=== PATIENT | female | born 1945 | race Caucasian/White ===

== ENCOUNTER 2016-03-03 23:03 | Inpatient (IN) | payer MEDICARE, OTHER ==
--- NOTE | 2016-03-04 | ER Document Report ---
ED General - General Chief Complaint: Hip Injury Stated Complaint: WEAKNESS Notes: Patient is a 70-year-old female presents for complaint of pain in the left hip. Patient was seen at [facility]. She had an x-ray which showed a hip fracture. They spoke with Dr. Manzano, orthopedist, who accepts the patient to be transferred to the ER. Patient says that she's walking her back yard and tripped. She says it was mechanical fall. She was not dizzy or lightheaded prior to falling. She landed onto her left hip. She only has pain in her left hip. No pain into her knee or foot. No numbness or weakness into her knee or foot. X-ray of the hip was obtained which shows a left intertrochanteric fracture. CT scan of the neck was obtained there because of a fall. Patient says she never had any neck pain but they did obtain a CT scan which was negative. CBC and CMP were obtained and showed no acute concerning abnormalities. Patient is on simvastatin. She takes Micardis and Toprol for high blood pressure. She takes Celexa. She has no other chronic medical problems. She is otherwise healthy. Her primary care doctor is Dr. White. TRAVEL OUTSIDE OF THE [place] IN LAST 30 DAYS: No - Related Data Allergies/Adverse Reactions: ampicillin [Ampicillin] Allergy (Severe, Verified 12/04/11 14:50) Rash Past Medical History - Social History Smoking Status: Never Smoker Frequency of alcohol use: None Drug Abuse: None Family History: Reviewed & Not Pertinent - Past Medical History Cardiac Medical History: Reports: Hx Hypercholesterolemia - well controlled with current meds, Hx Hypertension - well controlled with current meds Denies: Hx Atrial Fibrillation, Hx Congestive Heart Failure, Hx Coronary Artery Disease, Hx Heart Attack, Hx Peripheral Vascular Disease, Hx Pulmonary Embolism, Hx Heart Murmur Pulmonary Medical History: Reports: Hx Bronchitis, Hx Pneumonia Denies: Hx Asthma, Hx COPD, Hx Respiratory Failure, Hx Sleep Apnea, Hx Tuberculosis Neurological Medical History: Denies: Hx Seizures Renal/ Medical History: Reports: Hx Ovarian Cysts. Denies: Hx End Stage Renal Disease, Hx Kidney Stones, Hx Peritoneal Dialysis, Hx Pelvic Inflammatory Disease Malignancy Medical History: Denies: Hx Breast Cancer, Hx Cervical Cancer, Hx Leukemia, Hx Lung Cancer, Hx Ovarian Cancer Musculoskeltal Medical History: Reports Hx Arthritis, Denies Hx Fibromyalgia, Denies Hx Muscular Dystrophy Traumatic Medical History: Reports: Hx Fractures - LEFT humerus as child, RIGHT long finger fx r/t dog bite Infectious Medical History: Denies: Hx HIV Past Surgical History: Reports: Hx Orthopedic Surgery - orthrothoscopy left knee ;, Hx Vascular Surgery - l carotid endarterectomy. Denies: Hx Appendectomy, Hx Bowel Surgery, Hx Section, Hx Cholecystectomy, Hx Coronary Artery Bypass Graft, Hx Gastric Bypass Surgery, Hx Herniorrhaphy, Hx Hysterectomy, Hx Mastectomy, Hx Pacemaker, Hx Tonsillectomy, Hx Tubal Ligation - Immunizations Hx Diphtheria, Pertussis, Tetanus Vaccination: Yes - t-dap given during secondary Hx Pneumococcal Vaccination: 12/10/11 Review of Systems - Review of Systems Notes: My Normal Review Basic REVIEW OF SYSTEMS: CONSTITUTIONAL : Denies fever, chills, or sweats. Denies recent illness. EENT: Denies eye, ear, throat, or mouth pain or symptoms. Denies nasal or sinus congestion. CARDIOVASCULAR: Denies chest pain. RESPIRATORY: Denies cough, cold, or chest congestion. Denies shortness of breath, difficulty breathing, or wheezing. GASTROINTESTINAL: Denies abdominal pain. Denies nausea, vomiting, or diarrhea. Denies constipation. Last BM: : MUSCULOSKELETAL: Left hip pain. SKIN: Denies rash or skin lesions. HEMATOLOGIC : Denies easy bruising or bleeding. LYMPHATIC: Denies swollen, enlarged glands. NEUROLOGICAL: Denies altered mental status or loss of consciousness. Denies headache. Denies weakness or paralysis or loss of use of either side. Denies problems with gait or speech. Denies sensory or motor loss. ALL OTHER SYSTEMS REVIEWED AND NEGATIVE. Physical Exam - Vital signs Vitals: Resp 18 03/03/16 23:15 - Notes Notes: General Appearance: Well nourished, alert, cooperative, no acute distress, mild obvious discomfort. Well-appearing. Vitals: reviewed, See vital signs table. Head: no swelling or tenderness to the head Eyes: PERRL, EOMI, Conjuctiva clear Mouth: No decreasd moisturey Neck: Supple, no neck tenderness, No thyromegaly Lungs: No wheezing, No rales, No rhonci, No accessory muscle use, good air exchange bilaterally. Heart: Normal rate, Regular rythm, No murmur, no rub Abdomen: Normal BS, soft, No rigidity, No abdominal tenderness, No guarding, no rebound, no abdominal masses, no organomegaly Extremities: strength 5/5 in all extremities, good pulses in all extremities, pain to palpation of left hip. Remainder of left lower extremity is nontender. Other 3 extremities are nontender without any bruising or deformity. Skin: warm, dry, appropriate color, no rash Neuro: speech clear, oriented x 3, normal affect, responds appropriately to questions. Distal sensation intact in all 4 strands. Patient has good strength with plantar and dorsiflexion of the left foot. Good capillary refill. Course - Vital Signs Vital signs: Temp Pulse Resp BP Pulse Ox 99.4 F 71 20 144/52 H 96 03/04/16 03:11 03/04/16 03:11 03/04/16 03:11 03/04/16 03:11 03/04/16 03:11 - Laboratory Result Diagrams: 03/04/16 00:30 03/04/16 00:30 - EKG Interpretation by Me Additional EKG results interpreted by me: 03/04/16 04:57 EKG shows normal sinus rhythm with rate of [address] segment elevation or depression. No ischemic T wave inversions. MI interval, QRS duration, QTC intervals are within normal range. No old EKG available for comparison. - Transfer of Care Notes: 03/04/16 00:03 I called spoke with hospice, Dr. Summers, who sent feel that the patient is to be medically admitted but the swelling consult medical management. I called Dr. Manzano, orthopedic surgeon who accepted the patient, who requested that Dr. Summers call him on his cell phone. I did hear back from Dr. Summers and reviewed the patient's for medications with him. I did review the laboratory results from the outside facility. He said he would call back Dr. Manzano to discuss it further. 03/04/16 00:10 Dr. Dubon called me back again. He said that after discussion with Dr. Manzano , Dr. Manzano has agreed to accept the patient for admission. Discharge - Discharge Clinical Impression: Hip fracture, left Qualifiers: Encounter type: initial encounter Fracture type: closed Qualified Code(s): S72.002A - Fracture of unspecified part of neck of left femur, initial encounter for closed fracture Condition: Stable Disposition: ADMITTED INPATIENT Admitting Provider: Jose Juan
[2016-03-04] MEDS ORDERED: ONDANSETRON HCL INJ/PF 4 MG/2 ML SDV IV PRN (00:09)
[2016-03-04] MEDS ORDERED: RINGERS SOLUTION,LACTATED 1,000 ML IV PRN ×2 (00:09→17:52)
[2016-03-04] MEDS ORDERED: MORPHINE SULFATE 10 MG/ML INJ IV PRN (00:13)
[2016-03-04 00:46] LABS: ABSOLUTE LYMPHOCYTES (AUTO) 0.8 10^3/uL (0.5-4.7); ABSOLUTE MONOCYTES (AUTO) 0.4 10^3/uL (0.1-1.4); ABSOLUTE NEUT (AUTO) 5.1 10^3/uL (1.7-8.2); BASOPHILS % (AUTO) 0.6 % (0-2); EOSINOPHILS % (AUTO) 0.1 % (0-6); HEMATOCRIT 31.6 % (36.0-47.0); HEMOGLOBIN 11.1 g/dL (12.0-15.5); HGB HCT DIFFERENCE 1.7; LYMPHOCYTES % (AUTO) 12.1 % (13-45); MEAN CORPUSCULAR HEMOGLOBIN 31.9 pg (27.0-33.4); MEAN CORPUSCULAR VOLUME 91 fl (80-97); MONOCYTES % (AUTO) 6.3 % (3-13); RED BLOOD COUNT 3.47 10^6/uL (3.72-5.28); RED CELL DISTRIBUTION WIDTH 12.9 % (11.5-14.0); SEGMENTED NEUTROPHILS % (AUTO) 80.9 % (42-78); WHITE BLOOD COUNT 6.3 10^3/uL (4.0-10.5)
[2016-03-04 01:00] LABS: ANION GAP 11 (5-19); BLOOD UREA NITROGEN 30 mg/dL (7-20); CALCIUM 9.5 mg/dL (8.4-10.2); CARBON DIOXIDE 25 mmol/L (22-30); CHLORIDE 105 mmol/L (98-107); GLUCOSE 118 mg/dL (75-110); POTASSIUM 4.8 mmol/L (3.6-5.0); SODIUM 140.8 mmol/L (137-145)
[2016-03-04] MEDS: OXYCODONE-ACETAMINOPHEN 5-325 MG TABLET PO PRN ×3 (01:16→20:49)
--- NOTE | 2016-03-04 07:20 | EKG REPORT ---
SEVERITY:- NORMAL ECG - SINUS RHYTHM : Confirmed by: Lou Cr MD 04-Mar-2016 07:19:42
[2016-03-04] MEDS ORDERED: GLYCOPYRROLATE INJ 0.4 MG/2 ML VIAL ONE (07:39)
[2016-03-04] MEDS ORDERED: ONDANSETRON HCL INJ/PF 4 MG/2 ML SDV ONE (07:39)
[2016-03-04] MEDS ORDERED: LIDOCAINE 2% INJ-PF (20 MG/ML) 10 ML AMPUL ONE (07:39)
--- NOTE | 2016-03-04 07:59 | PDOC H&P ---
History of Present Illness Admission Date/PCP: 03/04/16 00:09 HEMALATHA ZAPATA Patient complains of: Left Hip Pain History of Present Illness: LISA RAY is a 70 year old female who sustained a fall onto her left hip on 03/03/16. Patient denies headache dizziness or loss of consciousness. Patient had deformity and pain and was brought to [facility] emergency room where x-rays demonstrated a fracture. Patient received a CT scan of the C-spine which was negative for fracture. Because of no orthopedic coverage patient was transferred to [facility] for definitive treatment. Currently patient states pain is 10/10 without Percocet with motion. Denies numbness or tingling. Describes as sharp stabbing pain. Past Medical History Cardiac Medical History: Reports: Hyperlipidema - well controlled with current meds, Hypertension - well controlled with current meds Denies: Atrial Fibrillation, Congestive Heart Failure, Coronary Artery Disease, Myocardial Infarction, Peripheral Vascular Disease, Pulmonary Embolism , Heart Murmur Pulmonary Medical History: Reports: Bronchitis, Pneumonia Denies: Asthma, Chronic Obstructive Pulmonary Disease (COPD), Respiratory Failure, Sleep Apnea, Tuberculosis Neurological Medical History: Denies: Seizures Renal/ Medical History: Denies: End Stage Renal Disease Malignancy Medical History: Denies: Breast Cancer, Cervical Cancer, Leukemia, Lung Cancer, Ovarian Cancer Musculoskeltal Medical History: Reports: Arthritis Denies: Fibromyalgia Psychiatric Medical History: Reports: Depression - yeyears ago when menapause started Hematology: Reports: Anemia - "borderline" Denies: Hemophilia, Sickle Cell Disease Infectious Medical History: Denies: HIV Past Surgical History Past Surgical History: Reports: Orthopedic Surgery - Bilateral TKA, Vascular Surgery - l carotid endarterectomy Denies: Amputation, Appendectomy, Section, Cholecystectomy, Coronary Artery Bypass Graft, Gastric Bypass Surgery, Herniorrhaphy, Hysterectomy, Mastectomy, Pacemaker, Tonsillectomy, Tubal Ligation Social History Smoking Status: Never Smoker Frequency of Alcohol Use: None Hx Recreational Drug Use: No Hx Prescription Drug Abuse: No - Advance Directive Resuscitation Status: Full Code Family History Family History: Reviewed & Not Pertinent Parental Family History Reviewed: No Children Family History Reviewed: No Sibling(s) Family History Reviewed.: Yes - Sister: Cardiac Medication/Allergy Home Medications: Citalopram Hydrobromide [Celexa 20 Mg Tablet] 20 mg PO QAM 07/23/12 Metoprolol Succinate [Toprol XL 25 mg Tablet] 25 mg PO QAM 09/15/11 Simvastatin [Zocor 40 mg Tablet] 40 mg PO QHS 09/15/11 Telmisartan [Micardis 80 mg Tablet] 80 mg PO QAM 12/04/11 Allergies/Adverse Reactions: ampicillin [Ampicillin] Allergy (Severe, Verified 12/04/11 14:50) Rash Review of Systems Constitutional: ABSENT: chills, fever(s), headache(s), weight gain, weight loss Eyes: ABSENT: visual disturbances Ears: ABSENT: hearing changes Cardiovascular: ABSENT: chest pain, dyspnea on exertion, edema, orthropnea, palpitations Respiratory: ABSENT: cough, hemoptysis Gastrointestinal: ABSENT: abdominal pain, constipation, diarrhea, hematemesis, hematochezia, nausea, vomiting Genitourinary: ABSENT: dysuria, hematuria Musculoskeletal: PRESENT: as per HPI Integumentary: ABSENT: rash, wounds Neurological: ABSENT: abnormal gait, abnormal speech, confusion, dizziness, focal weakness, syncope Psychiatric: ABSENT: anxiety, depression, homidical ideation, suicidal ideation Endocrine: ABSENT: cold intolerance, heat intolerance, menstrual abnormalities, polydipsia, polyuria Hematologic/Lymphatic: ABSENT: easy bleeding, easy bruising, lymphadenopathy Physical Exam Vital Signs: Temp Pulse Resp BP Pulse Ox 99.4 F 71 20 144/52 H 96 03/04/16 03:11 03/04/16 03:11 03/04/16 03:11 03/04/16 03:11 03/04/16 03:11 Intake & Output 03/03/16 03/04/16 03/05/16 06:59 06:59 06:59 Intake Total 0 Output Total 500 Balance -500 Weight 67.132 kg General appearance: PRESENT: no acute distress, well-developed, well-nourished Head exam: PRESENT: atraumatic, normocephalic Eye exam: PRESENT: conjunctiva pink, EOMI, PERRLA. ABSENT: scleral icterus Ear exam: PRESENT: normal external ear exam Mouth exam: PRESENT: moist, tongue midline Neck exam: PRESENT: full ROM. ABSENT: carotid bruit, JVD, lymphadenopathy, thyromegaly Respiratory exam: PRESENT: unlabored Cardiovascular exam: PRESENT: RRR. ABSENT: diastolic murmur, rubs, systolic murmur Pulses: PRESENT: normal dorsalis pedis pul, +2 pedal pulses bilateral Vascular exam: PRESENT: normal capillary refill GI/Abdominal exam: PRESENT: normal bowel sounds, soft. ABSENT: distended, guarding, mass, organolmegaly, rebound, tenderness Rectal exam: PRESENT: deferred Musculoskeletal exam: PRESENT: other - Left Hip: Short, externally rotated. Positive log roll. Intact plantar flexion/dorsiflexion. Dorsalis pedis pulses 2+. Thigh swollen compartments soft and compressible no sign of compartment syndrome. No tenderness/deformity bilateral upper extremities and right lower extremity. Neurological exam: PRESENT: alert, awake, oriented to person, oriented to place , oriented to time, oriented to situation, CN II-XII grossly intact. ABSENT: motor sensory deficit Psychiatric exam: PRESENT: appropriate affect, normal mood. ABSENT: homicidal ideation, suicidal ideation Skin exam: PRESENT: dry, intact, warm. ABSENT: cyanosis, rash Results Laboratory Results: 03/04/16 00:30 03/04/16 00:30 03/04/16 03/04/16 00:30 00:30 WBC 6.3 RBC 3.47 L Hgb 11.1 L Hct 31.6 L MCV 91 MCH 31.9 MCHC 35.0 RDW 12.9 Plt Count 113 L Seg Neutrophils % 80.9 H Lymphocytes % 12.1 L Monocytes % 6.3 Eosinophils % 0.1 Basophils % 0.6 Absolute Neutrophils 5.1 Absolute Lymphocytes 0.8 Absolute Monocytes 0.4 Absolute Eosinophils 0.0 Absolute Basophils 0.0 Sodium 140.8 Potassium 4.8 Chloride 105 Carbon Dioxide 25 Anion Gap 11 BUN 30 H Creatinine 1.10 Est GFR ( Amer) > 60 Est GFR (Non-Af Amer) 49 L Glucose 118 H Calcium 9.5 Impressions: Hip X-Ray 03/04/16 00:00 IMPRESSION: Intertrochanteric fracture of the left hip. Chest X-Ray 03/04/16 00:11 IMPRESSION: NO ACUTE RADIOGRAPHIC FINDING IN THE CHEST. Status: Image reviewed by me - I have reviewed patient's radiographs demonstrate comminuted intertrochanteric left hip fracture with extension to the lesser trochanter region. Assessment & Plan - Diagnosis (1) Fracture, intertrochanteric, left femur Qualifiers: Encounter type: initial encounter Fracture type: closed Qualified Code(s): S72.142A - Displaced intertrochanteric fracture of left femur , initial encounter for closed fracture Is this a current diagnosis for this admission?: YesPlan: I have discussed patient's diagnosis and treatment options for her left intertrochanteric fracture. Given patient's relative good health and a status I have recommended operative intervention which includes left cephalo-medullary nail. Risks and benefits have been explained to the patient patient is verbalizes understanding and consented for the procedure. Risks include anesthetic complications, excessive bleeding, infection, injury to surrounding nerves, vessels and tendons, bruising, healing difficulties, scar formation, posttraumatic arthritis and any unforseen complication. We will proceed with operative intervention pending medical optimization. We will start the patient on Xarelto postoperatively.
[2016-03-04] MEDS: CITALOPRAM HYDROBROMIDE 20 MG TABLET PO SCH (09:16)
[2016-03-04] MEDS: METOPROLOL SUCCINATE 25 MG TAB.SR.24H PO SCH (09:22)
[2016-03-04] MEDS: LOSARTAN POTASSIUM 50 MG TABLET PO SCH (09:22)
--- NOTE | 2016-03-04 09:36 | PDOC PROGRESS REPORT ---
Subjective Progress Note for:: 03/04/16 Subjective:: Patient seen by Dr. Summers in consultation today. Patient placed on antihypertensive medications. Patient denies any chest pain on climbing up steps or walking several blocks. She was watching her dogs when she sustained a mechanical fall causing a fracture. She does not have dyspnea on exertion nor any chest pain at all even with activity. Physical Exam Vital Signs: Temp Pulse Resp BP Pulse Ox 97.5 F 77 16 151/68 H 99 03/04/16 08:22 03/04/16 08:22 03/04/16 08:22 03/04/16 08:22 03/04/16 08:22 Intake & Output 03/03/16 03/04/16 03/05/16 06:59 06:59 06:59 Intake Total 0 Output Total 500 Balance -500 Weight 67.132 kg General appearance: PRESENT: no acute distress, cooperative Head exam: PRESENT: normocephalic Eye exam: PRESENT: conjunctiva pink, EOMI Mouth exam: PRESENT: moist, neck supple Neck exam: PRESENT: carotid bruit - Right Respiratory exam: PRESENT: clear to auscultation feliciano, unlabored. ABSENT: crackles, rhonchi, wheezes Cardiovascular exam: PRESENT: RRR, systolic murmur - The aortic area about 2/6. ABSENT: gallop GI/Abdominal exam: PRESENT: normal bowel sounds, soft. ABSENT: distended, tenderness Extremities exam: ABSENT: pedal edema Neurological exam: PRESENT: alert, awake, oriented to situation Psychiatric exam: PRESENT: normal mood Skin exam: PRESENT: dry, warm. ABSENT: cyanosis Results Laboratory Results: 03/04/16 00:30 03/04/16 00:30 03/04/16 03/04/16 00:30 00:30 WBC 6.3 RBC 3.47 L Hgb 11.1 L Hct 31.6 L MCV 91 MCH 31.9 MCHC 35.0 RDW 12.9 Plt Count 113 L Seg Neutrophils % 80.9 H Lymphocytes % 12.1 L Monocytes % 6.3 Eosinophils % 0.1 Basophils % 0.6 Absolute Neutrophils 5.1 Absolute Lymphocytes 0.8 Absolute Monocytes 0.4 Absolute Eosinophils 0.0 Absolute Basophils 0.0 Sodium 140.8 Potassium 4.8 Chloride 105 Carbon Dioxide 25 Anion Gap 11 BUN 30 H Creatinine 1.10 Est GFR ( Amer) > 60 Est GFR (Non-Af Amer) 49 L Glucose 118 H Calcium 9.5 Impressions: Hip X-Ray 03/04/16 00:00 IMPRESSION: Intertrochanteric fracture of the left hip. Chest X-Ray 03/04/16 00:11 IMPRESSION: NO ACUTE RADIOGRAPHIC FINDING IN THE CHEST. Assessment & Plan - Diagnosis (1) Hip fracture, left Qualifiers: Encounter type: initial encounter Fracture type: closed Qualified Code(s): S72.002A - Fracture of unspecified part of neck of left femur, initial encounter for closed fracture Is this a current diagnosis for this admission?: Yes (2) Hypertension Qualifiers: Hypertension type: essential hypertension Qualified Code(s): I10 - Essential (primary) hypertension (3) Hyperlipidemia Qualifiers: Hyperlipidemia type: unspecified Qualified Code(s): E78.5 - Hyperlipidemia, unspecified Is this a current diagnosis for this admission?: Yes (4) Chronic kidney disease Qualifiers: Chronic kidney disease stage: stage 2 (mild) Qualified Code(s): N18.2 - Chronic kidney disease, stage 2 (mild) Is this a current diagnosis for this admission?: Yes (5) Carotid atherosclerosis Qualifiers: Laterality: unspecified laterality Qualified Code(s): I65.29 - Occlusion and stenosis of unspecified carotid artery Is this a current diagnosis for this admission?: Yes - Time Time Spent with patient: 25-34 minutes - Plan Summary Plan Summary: Patient is a class II risk of about 0.9% cardiac event based on the revised cardiac index. She is more than average risk for surgery. Continue antihypertensive medication. Antiplatelet therapy when orthopedics clear. She denies LA, heart failure, stroke, nor diabetes. Patient stated she had chronic kidney disease but her creatinine is normal. He may have had TIA symptoms in the past and she was found to have carotid bruit requiring endarterectomy on her carotid on left.
[2016-03-04] MEDS ORDERED: CLINDAMYCIN 600 MG/D5W RTU 600 MG/50 ML RTUPB IV ONE (15:40)
[2016-03-04] MEDS ORDERED: FENTANYL CITRATE INJ/PF 100 MCG/2 ML AMPUL ONE (16:15)
[2016-03-04] MEDS ORDERED: ACETAMINOPHEN 100 ML IV ONE (16:16)
[2016-03-04] MEDS ORDERED: PROPOFOL INJ 200 MG/20 ML VIAL IV ONE (16:16)
[2016-03-04] MEDS ORDERED: MIDAZOLAM 2 MG/2 ML INJ ONE (16:16)
[2016-03-04] MEDS ORDERED: MAG HYDROX/AL HYDROX/SIMETH SUSP 30 ML UDCUP PO PRN (17:52)
--- NOTE | 2016-03-04 17:56 | Operative Report ---
Operative Report DATE OF SURGERY: 03/04/16 PREOPERATIVE DIAGNOSIS: Left Intertrochanteric Hip Fracture POSTOPERATIVE DIAGNOSIS: Same OPERATION: Left Hip Short Cephalomedullary Nail SURGEON: NATHALY ALCALA ANESTHESIA: Spinal COMPLICATIONS: None ESTIMATED BLOOD LOSS: 50 PROCEDURE: Indication for above procedure: Pleasant 70-year-old female who was outside with her dogs when she interval currently sustained a fall onto her left hip. Patient was seen outside facility where radiographs demonstrated intertrochanteric fracture. [facility] At that point I discussed treatment options including operative versus nonoperative intervention. Risk and benefits were explained to the patient, patient verbalized understanding consented for the procedure. Patient was seen and evaluated in the preoperative holding area. The LEFT lower extremity was initialized and marked. Patient received 6 mg of clindamycin IV for bacterial prophylaxis. Patient was taken back to the operative room where transferred operative table. Patient was placed under spinal anesthesia. Once adequate anesthetized he was carefully placed onto the hip positioner the nonoperative lower extremity and bilateral upper extremities were carefully padded and the peroneal nerve was padded and on the nonoperative extremity. The operative extremity was placed in a traction along with adduction and internal rotation. A surgical team debriefing was performed ensuring all instrumentation was available, the surgical procedure was discussed with possible concerns reviewed. A timeout was done identifying correct patient, procedure and extremity everyone in attendance agree with this and verbalized no concerns. Reduction maneuver with the use of the hip traction table were done and C-arm fluoroscopy was used to confirm optimal reduction of the intertrochanteric fracture. Once this was confirmed the lower extremity was prepped with chlor prep and draped in a sterile fashion. At this point a small skin incision was made proximal to the greater trochanter. The guidewire was placed onto the tip of the trochanter advanced down to the level of the lesser trochanter. AP and lateral fluoroscopy was used to confirm appropriate placement of the guidewire. The skin incision was then extended and the underlying fascia opened up carefully to the tip of the greater trochanter. The entry reamer was then used and advanced to the level of the lesser trochanter. At this point Marengo short gamma nail was opened up and placed onto the aiming arm and advanced down the shaft of the femur. AP and lateral fluoroscopy was then used to confirm appropriate placement of the nail. Then turned my attention to the compression screw fixation in the femoral head. The trochars were advanced to the skin, a skin incision was made, careful dissection down to the fascia to the lateral femoral cortex was then partaken. The guidewire was then used and placed in the center center position with the tip apex distance less than 25 mm. Once this position was obtained the size of the compression screw was measured. AP and lateral fluoroscopy used to confirm appropriate placement of our guide wire. The step reamer was used to drill up through the femoral neck and head. I then carefully advanced the compression screw into position. AP and lateral fluoroscopy was done to confirm appropriate placement of the compression screw this was then locked into position proximally. The compression screw was then disengaged from its mounting device and the guidewire was removed. Lastly proceeded with locking of the nail distally. Using the aiming arm the trochars were advanced to the skin, a skin incision was made. Careful dissection done with a hemostat to the lateral cortex of the femur. I then drilled the near and far cortices. Measured the appropriate sized distal locking screw and secured it into position. At this point AP/lateral and oblique views of the proximal and distal aspect of the nail were taken confirming appropriate placement of the compression screw, distal locking screw and intramedullary nail. Once this was confirmed I proceeded with copious irrigation of the proximal and distal wounds. The deep tissues were closed with 0 Vicryl suture, subcutaneous tissues were closed with 3-0 Monocryl suture. The skin was closed a running 3-0 subcuticular Monocryl suture and reinforced with Dermabond & Steri-Strips. A dressing was placed. Sponge counts, instrument counts and needle counts were correct. Patient was then transferred from the operating room table to the operating room stretcher. The was no intraoperative complications patient tolerated procedure well was stable to PACU. Implants used: Marengo 11 x 180 mm 130 Short Gamma Nail with a 105 mm compression screw Postoperative plan: Patient will be weightbearing as tolerated and begin physical therapy on postop day #1 with Xarelto daily.
[2016-03-04] MEDS: SENNOSIDES/DOCUSATE 8.6-50 MG 1 EACH TABLET PO SCH (19:35)
[2016-03-04] MEDS: CLINDAMYCIN 600 MG/D5W RTU 50 ML IV SCH (21:55)
[2016-03-04] MEDS: RIVAROXABAN 10 MG TABLET PO SCH (21:56)
[2016-03-04] MEDS: SIMVASTATIN 40 MG TABLET PO SCH (21:56)
[2016-03-05] MEDS: OXYCODONE-ACETAMINOPHEN 5-325 MG TABLET PO PRN ×3 (04:22→19:25)
[2016-03-05] MEDS: CLINDAMYCIN 600 MG/D5W RTU 50 ML IV SCH ×3 (06:00→21:27)
[2016-03-05 07:46] LABS: ANION GAP 10 (5-19); BLOOD UREA NITROGEN 23 mg/dL (7-20); CALCIUM 9.3 mg/dL (8.4-10.2); CARBON DIOXIDE 26 mmol/L (22-30); CHLORIDE 101 mmol/L (98-107); GLUCOSE 133 mg/dL (75-110); POTASSIUM 4.2 mmol/L (3.6-5.0); SODIUM 137.3 mmol/L (137-145)
[2016-03-05 08:16] LABS: HEMATOCRIT 28.2 % (36.0-47.0); HEMOGLOBIN 9.8 g/dL (12.0-15.5); HGB HCT DIFFERENCE 1.2; MEAN CORPUSCULAR HEMOGLOBIN 31.3 pg (27.0-33.4); MEAN CORPUSCULAR HGB CONC 34.7 g/dL (32.0-36.0); MEAN CORPUSCULAR VOLUME 90 fl (80-97); RED BLOOD COUNT 3.12 10^6/uL (3.72-5.28); RED CELL DISTRIBUTION WIDTH 12.6 % (11.5-14.0); WHITE BLOOD COUNT 6.7 10^3/uL (4.0-10.5)
[2016-03-05] MEDS: SENNOSIDES/DOCUSATE 8.6-50 MG 1 EACH TABLET PO SCH ×2 (09:29→18:01)
[2016-03-05] MEDS: PRENATAL VITAMIN W-O CA NO5/FE FUMARATE/FA CAPSULE PO SCH (09:30)
[2016-03-05] MEDS: CITALOPRAM HYDROBROMIDE 20 MG TABLET PO SCH (09:30)
[2016-03-05] MEDS: LOSARTAN POTASSIUM 50 MG TABLET PO SCH (09:34)
[2016-03-05] MEDS: METOPROLOL SUCCINATE 25 MG TAB.SR.24H PO SCH (09:35)
--- NOTE | 2016-03-05 15:56 | PDOC PROGRESS REPORT ---
Subjective Progress Note for:: 03/05/16 Subjective:: Patient seen by Dr. Summers in consultation today. Patient placed on antihypertensive medications. Denies any shortness of breath or chest pain. Patient status post hip surgery. Mild pain otherwise doing well. Had episode of hypotension earlier but only on one reading. Denies any dizziness or lightheadedness or near syncopal sensation. Physical Exam Vital Signs: Temp Pulse Resp BP Pulse Ox 99.1 F 95 20 110/62 94 03/05/16 08:03 03/05/16 08:03 03/05/16 08:03 03/05/16 09:15 03/05/16 08:03 Intake & Output 03/04/16 03/05/16 03/06/16 06:59 06:59 06:59 Intake Total 0 1590 0 Output Total 500 1210 Balance -500 380 0 Weight 67.132 kg General appearance: PRESENT: no acute distress, cooperative Head exam: PRESENT: normocephalic Eye exam: PRESENT: EOMI Mouth exam: PRESENT: moist, neck supple Neck exam: ABSENT: JVD Respiratory exam: PRESENT: clear to auscultation feliciano Cardiovascular exam: PRESENT: RRR. ABSENT: gallop GI/Abdominal exam: PRESENT: normal bowel sounds, soft. ABSENT: distended, tenderness Extremities exam: ABSENT: pedal edema Neurological exam: PRESENT: alert, awake, oriented to situation Skin exam: PRESENT: dry, warm. ABSENT: cyanosis Results Laboratory Results: 03/05/16 04:34 03/05/16 04:34 03/05/16 03/05/16 04:34 04:34 WBC 6.7 RBC 3.12 L Hgb 9.8 L Hct 28.2 L MCV 90 MCH 31.3 MCHC 34.7 RDW 12.6 Plt Count 95 L Sodium 137.3 Potassium 4.2 Chloride 101 Carbon Dioxide 26 Anion Gap 10 BUN 23 H Creatinine 0.90 Est GFR ( Amer) > 60 Est GFR (Non-Af Amer) > 60 Glucose 133 H Calcium 9.3 Impressions: Fluoroscopy 03/04/16 00:00 IMPRESSION: Please see combined report for performance of procedure and radiologic supervision and interpretation. Hip X-Ray 03/04/16 00:00 IMPRESSION: IMAGE(S) OBTAINED DURING PROCEDURE. Chest X-Ray 03/04/16 00:11 IMPRESSION: NO ACUTE RADIOGRAPHIC FINDING IN THE CHEST. Assessment & Plan - Diagnosis (1) Hip fracture, left Qualifiers: Encounter type: initial encounter Fracture type: closed Qualified Code(s): S72.002A - Fracture of unspecified part of neck of left femur, initial encounter for closed fracture Is this a current diagnosis for this admission?: Yes (2) Hypertension Qualifiers: Hypertension type: essential hypertension Qualified Code(s): I10 - Essential (primary) hypertension (3) Hyperlipidemia Qualifiers: Hyperlipidemia type: unspecified Qualified Code(s): E78.5 - Hyperlipidemia, unspecified Is this a current diagnosis for this admission?: Yes (4) Chronic kidney disease Qualifiers: Chronic kidney disease stage: stage 2 (mild) Qualified Code(s): N18.2 - Chronic kidney disease, stage 2 (mild) Is this a current diagnosis for this admission?: Yes (5) Carotid atherosclerosis Qualifiers: Laterality: unspecified laterality Qualified Code(s): I65.29 - Occlusion and stenosis of unspecified carotid artery Is this a current diagnosis for this admission?: Yes - Time Time Spent with patient: 25-34 minutes - Plan Summary Plan Summary: We are going to decrease the dose of ARB. Continue metoprolol. Continue IV hydration. Recheck WBC. Continue supportive care. We will continue to follow. No reported excessive bleeding on the surgical site.
[2016-03-05] MEDS: SIMVASTATIN 40 MG TABLET PO SCH (21:28)
[2016-03-05] MEDS: RIVAROXABAN 10 MG TABLET PO SCH (21:28)
--- NOTE | 2016-03-05 22:22 | PDOC PROGRESS REPORT ---
Subjective Progress Note for:: 03/05/16 Subjective:: Patient seen and evaluated this evening. She states she is doing well. Still has some occasional spasms but these are improving. Is able to walk 60 feet today. Denies chest pain or shortness breath. Physical Exam Vital Signs: Temp Pulse Resp BP Pulse Ox 98.6 F 89 20 107/48 L 95 03/05/16 20:12 03/05/16 20:12 03/05/16 20:12 03/05/16 20:12 03/05/16 20:12 Intake & Output 03/04/16 03/05/16 03/06/16 06:59 06:59 06:59 Intake Total 0 1590 960 Output Total 500 1210 0 Balance -500 380 960 Weight 67.132 kg Musculoskeletal exam: PRESENT: other - Left lower extremity: Dressing clean/dry/ intact no erythema or drainage. Mild ecchymosis. Intact plantar flexion/ dorsiflexion. No calf tenderness. Results Laboratory Results: 03/05/16 04:34 03/05/16 04:34 03/05/16 03/05/16 04:34 04:34 WBC 6.7 RBC 3.12 L Hgb 9.8 L Hct 28.2 L MCV 90 MCH 31.3 MCHC 34.7 RDW 12.6 Plt Count 95 L Sodium 137.3 Potassium 4.2 Chloride 101 Carbon Dioxide 26 Anion Gap 10 BUN 23 H Creatinine 0.90 Est GFR ( Amer) > 60 Est GFR (Non-Af Amer) > 60 Glucose 133 H Calcium 9.3 Impressions: Fluoroscopy 03/04/16 00:00 IMPRESSION: Please see combined report for performance of procedure and radiologic supervision and interpretation. Hip X-Ray 03/04/16 00:00 IMPRESSION: IMAGE(S) OBTAINED DURING PROCEDURE. Chest X-Ray 03/04/16 00:11 IMPRESSION: NO ACUTE RADIOGRAPHIC FINDING IN THE CHEST. Assessment & Plan - Diagnosis (1) Fracture, intertrochanteric, left femur Qualifiers: Encounter type: initial encounter Fracture type: closed Qualified Code(s): S72.142A - Displaced intertrochanteric fracture of left femur , initial encounter for closed fracture Is this a current diagnosis for this admission?: YesPlan: Status post left hip cephalo-medullary nail #1 physical therapy weightbearing as tolerated #2 pain control #3 Xarelto for DVT prophylaxis #4 discharge planning long term facility versus home health depending on how patient progresses in therapy.
[2016-03-06] MEDS: OXYCODONE-ACETAMINOPHEN 5-325 MG TABLET PO PRN ×2 (04:33→10:37)
[2016-03-06] MEDS: CLINDAMYCIN 600 MG/D5W RTU 50 ML IV SCH ×3 (05:37→21:41)
[2016-03-06 06:33] LABS: HEMATOCRIT 26.4 % (36.0-47.0); HEMOGLOBIN 9.1 g/dL (12.0-15.5); HGB HCT DIFFERENCE 0.9; MEAN CORPUSCULAR HEMOGLOBIN 31.8 pg (27.0-33.4); MEAN CORPUSCULAR HGB CONC 34.6 g/dL (32.0-36.0); MEAN CORPUSCULAR VOLUME 92 fl (80-97); RED BLOOD COUNT 2.87 10^6/uL (3.72-5.28); RED CELL DISTRIBUTION WIDTH 12.6 % (11.5-14.0); WHITE BLOOD COUNT 6.9 10^3/uL (4.0-10.5)
--- NOTE | 2016-03-06 07:20 | PDOC PROGRESS REPORT ---
Subjective Progress Note for:: 03/06/16 Subjective:: Patient doing well. Pain control. Denies chest pain or shortness of breath. Physical Exam Vital Signs: Temp Pulse Resp BP Pulse Ox 98.6 F 89 20 107/48 L 95 03/05/16 20:12 03/05/16 20:12 03/05/16 20:12 03/05/16 20:12 03/05/16 20:12 Intake & Output 03/05/16 03/06/16 03/07/16 06:59 06:59 06:59 Intake Total 1590 960 Output Total 1210 0 Balance 380 960 Musculoskeletal exam: PRESENT: other - Left hip: Dressing clean/dry/intact no erythema or drainage. No calf tenderness. Mild ecchymosis. Mild thigh swelling Results Laboratory Results: 03/06/16 05:08 03/05/16 04:34 03/05/16 03/05/16 03/06/16 04:34 04:34 05:08 WBC 6.7 6.9 RBC 3.12 L 2.87 L Hgb 9.8 L 9.1 L Hct 28.2 L 26.4 L MCV 90 92 MCH 31.3 31.8 MCHC 34.7 34.6 RDW 12.6 12.6 Plt Count 95 L 85 L Sodium 137.3 Potassium 4.2 Chloride 101 Carbon Dioxide 26 Anion Gap 10 BUN 23 H Creatinine 0.90 Est GFR ( Amer) > 60 Est GFR (Non-Af Amer) > 60 Glucose 133 H Calcium 9.3 Impressions: Fluoroscopy 03/04/16 00:00 IMPRESSION: Please see combined report for performance of procedure and radiologic supervision and interpretation. Hip X-Ray 03/04/16 00:00 IMPRESSION: IMAGE(S) OBTAINED DURING PROCEDURE. Chest X-Ray 03/04/16 00:11 IMPRESSION: NO ACUTE RADIOGRAPHIC FINDING IN THE CHEST. Assessment & Plan - Diagnosis (1) Fracture, intertrochanteric, left femur Qualifiers: Encounter type: initial encounter Fracture type: closed Qualified Code(s): S72.142A - Displaced intertrochanteric fracture of left femur , initial encounter for closed fracture Is this a current diagnosis for this admission?: YesPlan: Status post left cephalo-medullary nail #1 physical therapy weightbearing as tolerated #2 pain control #3 Xarelto for DVT prophylaxis #4 [address] [facility] facility versus home health pending physical therapy recommendations
[2016-03-06] MEDS ORDERED: LOSARTAN POTASSIUM 50 MG TABLET PO SCH (10:00)
[2016-03-06] MEDS: METOPROLOL SUCCINATE 25 MG TAB.SR.24H PO SCH (10:34)
[2016-03-06] MEDS: CITALOPRAM HYDROBROMIDE 20 MG TABLET PO SCH (10:37)
[2016-03-06] MEDS: SENNOSIDES/DOCUSATE 8.6-50 MG 1 EACH TABLET PO SCH ×2 (10:37→18:15)
[2016-03-06] MEDS: PRENATAL VITAMIN W-O CA NO5/FE FUMARATE/FA CAPSULE PO SCH (10:37)
--- NOTE | 2016-03-06 18:25 | PDOC PROGRESS REPORT ---
Subjective Progress Note for:: 03/06/16 Subjective:: Patient voiced no complaints. Denies any chest pain or shortness of breath. No chills or fever. No nausea or vomiting or abdominal pain. Pain is controlled by narcotics. Blood pressure however is on the low normal side. Blood pressure medications were held earlier. Patient's report that he had knee surgery in the past and when she takes narcotics her blood pressure goes down. Physical Exam Vital Signs: Temp Pulse Resp BP Pulse Ox 98.2 F 77 16 102/50 L 96 03/06/16 13:00 03/06/16 13:00 03/06/16 13:00 03/06/16 13:00 03/06/16 13:00 Intake & Output 03/05/16 03/06/16 03/07/16 06:59 06:59 06:59 Intake Total 1590 960 360 Output Total 1210 0 Balance 380 960 360 General appearance: PRESENT: no acute distress, cooperative Head exam: PRESENT: normocephalic Eye exam: PRESENT: EOMI Mouth exam: PRESENT: moist, neck supple Neck exam: ABSENT: JVD Respiratory exam: PRESENT: clear to auscultation feliciano Cardiovascular exam: PRESENT: RRR. ABSENT: gallop GI/Abdominal exam: PRESENT: soft. ABSENT: distended, tenderness Extremities exam: ABSENT: pedal edema Neurological exam: PRESENT: alert, awake, oriented to situation Skin exam: PRESENT: dry, warm. ABSENT: cyanosis Results Laboratory Results: 03/06/16 05:08 03/05/16 04:34 03/06/16 05:08 WBC 6.9 RBC 2.87 L Hgb 9.1 L Hct 26.4 L MCV 92 MCH 31.8 MCHC 34.6 RDW 12.6 Plt Count 85 L Impressions: Fluoroscopy 03/04/16 00:00 IMPRESSION: Please see combined report for performance of procedure and radiologic supervision and interpretation. Hip X-Ray 03/04/16 00:00 IMPRESSION: IMAGE(S) OBTAINED DURING PROCEDURE. Chest X-Ray 03/04/16 00:11 IMPRESSION: NO ACUTE RADIOGRAPHIC FINDING IN THE CHEST. Assessment & Plan - Diagnosis (1) Hip fracture, left Qualifiers: Encounter type: initial encounter Fracture type: closed Qualified Code(s): S72.002A - Fracture of unspecified part of neck of left femur, initial encounter for closed fracture Is this a current diagnosis for this admission?: Yes (2) Hypertension Qualifiers: Hypertension type: essential hypertension Qualified Code(s): I10 - Essential (primary) hypertension (3) Hyperlipidemia Qualifiers: Hyperlipidemia type: unspecified Qualified Code(s): E78.5 - Hyperlipidemia, unspecified Is this a current diagnosis for this admission?: Yes (4) Chronic kidney disease Qualifiers: Chronic kidney disease stage: stage 2 (mild) Qualified Code(s): N18.2 - Chronic kidney disease, stage 2 (mild) Is this a current diagnosis for this admission?: Yes (5) Carotid atherosclerosis Qualifiers: Laterality: unspecified laterality Qualified Code(s): I65.29 - Occlusion and stenosis of unspecified carotid artery Is this a current diagnosis for this admission?: Yes - Time Time Spent with patient: 15-24 minutes - Plan Summary Plan Summary: We are going to continue the metoprolol but discontinued the ARB. She can resume outpatient when she is off narcotics. Continue other medications and supportive care. Drop in hematocrit likely secondary to dilutional.
[2016-03-06] MEDS: SIMVASTATIN 40 MG TABLET PO SCH (21:39)
[2016-03-06] MEDS: RIVAROXABAN 10 MG TABLET PO SCH (21:39)
[2016-03-07] MEDS: OXYCODONE-ACETAMINOPHEN 5-325 MG TABLET PO PRN (04:34)
[2016-03-07 06:14] LABS: HEMATOCRIT 24.5 % (36.0-47.0); HEMOGLOBIN 8.5 g/dL (12.0-15.5); MEAN CORPUSCULAR HGB CONC 34.8 g/dL (32.0-36.0); MEAN CORPUSCULAR VOLUME 92 fl (80-97); RED BLOOD COUNT 2.66 10^6/uL (3.72-5.28); RED CELL DISTRIBUTION WIDTH 12.7 % (11.5-14.0); WHITE BLOOD COUNT 5.8 10^3/uL (4.0-10.5)
--- NOTE | 2016-03-07 07:09 | PDOC DISCHARGE SUMMARY ---
General - Admit/Disc Date/PCP Admission Date/Primary Care Provider: 03/04/16 00:09 HEMALATHA JODI Discharge Date: 03/07/16 - Discharge Diagnosis (1) Fracture, intertrochanteric, left femur Is this a current diagnosis for this admission?: Yes - Additional Information Resuscitation Status: Full Code Discharge Diet: As Tolerated Discharge Activity: No Driving, No Lifting Over 10 Pounds, No Lifting/Push/ Pulling, Slowly Increase Activity Home Medications: Citalopram Hydrobromide [Celexa 20 mg Tablet] 20 mg PO QAM 09/15/11 Metoprolol Succinate [Toprol Xl 25 mg Tab.sr] 25 mg PO QAM 09/15/11 Simvastatin [Zocor 40 mg Tablet] 40 mg PO QHS 09/15/11 Telmisartan [Micardis 80 mg Tablet] 80 mg PO QAM 12/04/11 Oxycodone HCl/Acetaminophen [Percocet 5-325 mg Tablet] 1 - 2 tab PO ASDIR PRN # 45 tablet 03/07/16 Rivaroxaban [Xarelto 10 mg Tablet] 10 mg PO DAILY #23 tablet 03/07/16 History of Present Illness Patient complains of: Left hip pain History of Present Illness: LISA RAY is a 70 year old female who sustained a fall onto her left hip on 03/03/16. Patient denies headache dizziness or loss of consciousness. Patient had deformity and pain and was brought to [facility] emergency room where x-rays demonstrated a fracture. Patient received a CT scan of the C-spine which was negative for fracture. Because of no orthopedic coverage patient was transferred to [facility] for definitive treatment. Currently patient states pain is 10/10 without Percocet with motion. Denies numbness or tingling. Describes as sharp stabbing pain. Hospital Course Hospital Course: Patient present with a left intertrochanteric hip fracture. She successfully underwent operative intervention which included left hip cephalo-medullary nail. On postop day #1 patient was doing well and begin physical therapy and walked properly 60 feet. Her hemoglobin and hematocrit slightly decreased but stabilized throughout her hospital course. She also has some mild hypertension for which the hospitalist was following her for is noted to be secondary to pain medication. Patient underwent physical therapy throughout her hospital stay and progressed up properly. Patient has been taking Xarelto for DVT prophylaxis. Patient had no issues or complications during her hospital course. Physical Exam Vital Signs: Temp Pulse Resp BP Pulse Ox 98.7 F 91 17 99/47 L 92 03/07/16 00:00 03/07/16 00:00 03/07/16 00:00 03/07/16 00:00 03/07/16 00:00 Intake & Output 03/05/16 03/06/16 03/07/16 06:59 06:59 06:59 Intake Total 1439 306 4547 Output Total 1210 0 Balance 290 649 6284 Weight 74.2 kg General appearance: PRESENT: no acute distress, well-developed, well-nourished Head exam: PRESENT: atraumatic, normocephalic Eye exam: PRESENT: conjunctiva pink, EOMI, PERRLA. ABSENT: scleral icterus Ear exam: PRESENT: normal external ear exam Mouth exam: PRESENT: moist, tongue midline Neck exam: PRESENT: full ROM. ABSENT: carotid bruit, JVD, lymphadenopathy, thyromegaly Cardiovascular exam: PRESENT: RRR. ABSENT: diastolic murmur, rubs, systolic murmur Pulses: PRESENT: normal dorsalis pedis pul, +2 pedal pulses bilateral Vascular exam: PRESENT: normal capillary refill GI/Abdominal exam: PRESENT: normal bowel sounds, soft. ABSENT: distended, guarding, mass, organolmegaly, rebound, tenderness Rectal exam: PRESENT: deferred Musculoskeletal exam: PRESENT: other - Left hip: Dressing clean/dry/intact no erythema or drainage. Intact plantar flexion/dorsiflexion. No sensory deficits. Dorsalis pedis pulse 2+. No calf tenderness. Neurological exam: PRESENT: alert, awake, oriented to person, oriented to place , oriented to time, oriented to situation, CN II-XII grossly intact. ABSENT: motor sensory deficit Psychiatric exam: PRESENT: appropriate affect, normal mood. ABSENT: homicidal ideation, suicidal ideation Skin exam: PRESENT: dry, intact, warm. ABSENT: cyanosis, rash Results Laboratory Results: 03/07/16 04:54 03/05/16 04:34 03/07/16 04:54 WBC 5.8 RBC 2.66 L Hgb 8.5 L Hct 24.5 L MCV 92 MCH 32.0 MCHC 34.8 RDW 12.7 Plt Count 84 L Impressions: Fluoroscopy 03/04/16 00:00 IMPRESSION: Please see combined report for performance of procedure and radiologic supervision and interpretation. Hip X-Ray 03/04/16 00:00 IMPRESSION: IMAGE(S) OBTAINED DURING PROCEDURE. Chest X-Ray 03/04/16 00:11 IMPRESSION: NO ACUTE RADIOGRAPHIC FINDING IN THE CHEST. Plan Discharge Plan: Patient progressed appropriately throughout her hospital course with physical therapy. Societal 03/07/16 she was orthopedically medically stable for discharge to home. Patient is to call the office with any questions or concerns including increasing redness, swelling, pain, drainage or temperature greater than 101.5. Patient was set up for outpatient physical therapy and has adequate home support and thus on 03/07/16 patient was orthopedically makes it for discharge to home.
[2016-03-07 07:49] VITALS: BP 111/47
[2016-03-07] MEDS: METOPROLOL SUCCINATE 25 MG TAB.SR.24H PO SCH (08:26)
[2016-03-07] MEDS: CITALOPRAM HYDROBROMIDE 20 MG TABLET PO SCH (08:27)
[2016-03-07] MEDS: PRENATAL VITAMIN W-O CA NO5/FE FUMARATE/FA CAPSULE PO SCH (10:15)
[2016-03-07] MEDS: SENNOSIDES/DOCUSATE 8.6-50 MG 1 EACH TABLET PO SCH (10:15)
--- NOTE | 2016-03-07 10:52 | PDOC PROGRESS REPORT ---
Subjective Progress Note for:: 03/07/16 Subjective:: Patient voiced no complaints. Pain is well controlled. Able to ambulate. No more drop in blood pressure noted. Physical Exam Vital Signs: Temp Pulse Resp BP Pulse Ox 98.3 F 92 18 111/47 L 93 03/07/16 09:52 03/07/16 09:52 03/07/16 09:52 03/07/16 09:52 03/07/16 09:52 Intake & Output 03/06/16 03/07/16 03/08/16 06:59 06:59 06:59 Intake Total 960 1260 0 Output Total 0 Balance 960 1260 0 Weight 74.2 kg General appearance: PRESENT: no acute distress, cooperative Head exam: PRESENT: normocephalic Eye exam: PRESENT: EOMI Mouth exam: PRESENT: moist, neck supple Neck exam: ABSENT: JVD Respiratory exam: PRESENT: clear to auscultation feliciano Cardiovascular exam: PRESENT: RRR. ABSENT: gallop GI/Abdominal exam: PRESENT: soft. ABSENT: distended, tenderness Extremities exam: PRESENT: pedal edema - Trace Neurological exam: PRESENT: alert, awake, oriented to situation Skin exam: PRESENT: dry, warm. ABSENT: cyanosis Results Laboratory Results: 03/07/16 04:54 03/05/16 04:34 03/07/16 04:54 WBC 5.8 RBC 2.66 L Hgb 8.5 L Hct 24.5 L MCV 92 MCH 32.0 MCHC 34.8 RDW 12.7 Plt Count 84 L Impressions: Fluoroscopy 03/04/16 00:00 IMPRESSION: Please see combined report for performance of procedure and radiologic supervision and interpretation. Hip X-Ray 03/04/16 00:00 IMPRESSION: IMAGE(S) OBTAINED DURING PROCEDURE. Chest X-Ray 03/04/16 00:11 IMPRESSION: NO ACUTE RADIOGRAPHIC FINDING IN THE CHEST. Assessment & Plan - Diagnosis (1) Hip fracture, left Qualifiers: Encounter type: initial encounter Fracture type: closed Qualified Code(s): S72.002A - Fracture of unspecified part of neck of left femur, initial encounter for closed fracture Is this a current diagnosis for this admission?: Yes (2) Hypertension Qualifiers: Hypertension type: essential hypertension Qualified Code(s): I10 - Essential (primary) hypertension (3) Hyperlipidemia Qualifiers: Hyperlipidemia type: unspecified Qualified Code(s): E78.5 - Hyperlipidemia, unspecified Is this a current diagnosis for this admission?: Yes (4) Chronic kidney disease Qualifiers: Chronic kidney disease stage: stage 2 (mild) Qualified Code(s): N18.2 - Chronic kidney disease, stage 2 (mild) Is this a current diagnosis for this admission?: Yes (5) Carotid atherosclerosis Qualifiers: Laterality: unspecified laterality Qualified Code(s): I65.29 - Occlusion and stenosis of unspecified carotid artery Is this a current diagnosis for this admission?: Yes - Time Time Spent with patient: Less than 15 minutes - Plan Summary Plan Summary: Patient is going home today. Patient was advised to hold micardis while on the narcotics and continue to monitor blood pressure at home. Continue the beta daryl however. Patient understood instructions. She has an appointment with her primary care physician when to resume it. Thank you so much for letting us participate in her care. We will sign off.
== END 2016-03-07 11:20 | disposition home or self-care (01) | DRG 482 ==
LOC: ER 23:03 → EH 03-04 00:09 → UNDOADMIN 03-04 00:29 → EH 03-04 00:29 → 4N 03-04 03:04
PROVIDERS: ADMIT Orthopaedic Surgery; ATTEND Orthopaedic Surgery
PROC: 0QS736Z Reposition Left Upper Femur with Intramedullary Internal Fixation Device, Percutaneous Approach (ICD-10-PCS; principal; 2016-03-04 16:00)
DX: S72.142A Displaced intertrochanteric fracture of left femur, initial encounter for closed fracture (principal); I12.9 Hypertensive chronic kidney disease with stage 1 through stage 4 chronic kidney disease, or unspecified chronic kidney disease; N18.2 Chronic kidney disease, stage 2 (mild); E78.5 Hyperlipidemia, unspecified; I65.29 Occlusion and stenosis of unspecified carotid artery; J40 Bronchitis, not specified as acute or chronic; M19.90 Unspecified osteoarthritis, unspecified site; W01.0XXA Fall on same level from slipping, tripping and stumbling without subsequent striking against object, initial encounter; Y93.01 Activity, walking, marching and hiking; Y92.096 Garden or yard of other non-institutional residence as the place of occurrence of the external cause; Z96.653 Presence of artificial knee joint, bilateral; Z88.1 Allergy status to other antibiotic agents
CPT/HCPCS: 01230; 36415; 71010; 80048; 85025; 85027; 93005; 93010; 94799; 99285; G8978-GP; G8979-GP; G8987-GO; G8988-GO; J0131; J2250; J2405; J2704; J3010; J3490; J7120

== ENCOUNTER → 2016-05-08 | Outpatient (CLI) | payer MEDICARE, OTHER | LOC: WI 11:38 | PROVIDERS: ATTEND Internal Medicine | DX: Z12.31 Encounter for screening mammogram for malignant neoplasm of breast (principal) | CPT/HCPCS: 77067; G0202 ==

== ENCOUNTER 2016-10-14 05:24 | Day surgery (SDC) | payer MEDICARE, OTHER ==
--- NOTE | 2016-10-07 10:19 | RADIOLOGY REPORT (SQ) ---
EXAM DESCRIPTION: CHEST PA/LATERAL COMPLETED DATE/TIME: 10/07/2016 9:52 am REASON FOR STUDY: PRE-OP COMPARISON: AP chest 03/04/2016, 09/15/2011 EXAM PARAMETERS: NUMBER OF VIEWS: two views TECHNIQUE: Digital Frontal and Lateral radiographic views of the chest acquired. RADIATION DOSE: NA LIMITATIONS: none FINDINGS: LUNGS AND PLEURA: Stable mild increased interstitial markings at both lung bases. Unchanged right apical lung parenchymal [place]. No acute infiltrates. No pleural effusion. No pneumothorax. MEDIASTINUM AND HILAR STRUCTURES: No masses or contour abnormalities. HEART AND VASCULAR STRUCTURES: Stable borderline cardiomegaly BONES: Osteopenic with multilevel thoracic spine degenerative disc changes HARDWARE: None in the chest. OTHER: No other significant finding. IMPRESSION: No acute findings. TECHNICAL DOCUMENTATION: JOB ID: [id number] [employer]- All Rights Reserved
[2016-10-07 10:23] LABS: APPEARANCE,URINE CLEAR; BILIRUBIN,URINE NEGATIVE (NEGATIVE); GLUCOSE, URINE NEGATIVE (NEGATIVE); KETONES,URINE NEGATIVE (NEGATIVE); LEUKOCYTE ESTERASE,URINE NEGATIVE (NEGATIVE); NITRITE,URINE NEGATIVE (NEGATIVE); PROTEIN,URINE NEGATIVE (NEGATIVE); URINE SPECIFIC GRAVITY 1.015; UROBILINOGEN,URINE NEGATIVE mg/dL (<2.0)
[2016-10-07 10:24] LABS: ABSOLUTE EOSINOPHILS # (AUTO) 0.1 10^3/uL (0.0-0.6); ABSOLUTE LYMPHOCYTES (AUTO) 1.6 10^3/uL (0.5-4.7); ABSOLUTE MONOCYTES (AUTO) 0.6 10^3/uL (0.1-1.4); BASOPHILS % (AUTO) 0.8 % (0-2); EOSINOPHILS % (AUTO) 1.6 % (0-6); HEMATOCRIT 32.2 % (36.0-47.0); HEMOGLOBIN 11.1 g/dL (12.0-15.5); HGB HCT DIFFERENCE 1.1; LYMPHOCYTES % (AUTO) 30.5 % (13-45); MEAN CORPUSCULAR HEMOGLOBIN 32.4 pg (27.0-33.4); MEAN CORPUSCULAR HGB CONC 34.5 g/dL (32.0-36.0); MEAN CORPUSCULAR VOLUME 94 fl (80-97); MONOCYTES % (AUTO) 10.5 % (3-13); RED BLOOD COUNT 3.43 10^6/uL (3.72-5.28); RED CELL DISTRIBUTION WIDTH 12.9 % (11.5-14.0); SEGMENTED NEUTROPHILS % (AUTO) 56.6 % (42-78); WHITE BLOOD COUNT 5.3 10^3/uL (4.0-10.5)
[2016-10-07 10:45] LABS: ANION GAP 11 (5-19); BLOOD UREA NITROGEN 27 mg/dL (7-20); CARBON DIOXIDE 26 mmol/L (22-30); CHLORIDE 105 mmol/L (98-107); CREATININE RESULT 1.01 mg/dL (0.52-1.25); GLUCOSE 87 mg/dL (75-110); POTASSIUM 4.9 mmol/L (3.6-5.0); SODIUM 142.3 mmol/L (137-145)
--- NOTE | 2016-10-07 14:08 | EKG REPORT ---
SEVERITY:- NORMAL ECG - SINUS RHYTHM : Confirmed by: Abelino Hardwick MD 07-Oct-2016 14:07:42
[~2016-10-14 05:24] MED LIST: CLINDAMYCIN 600 MG/D5W RTU 600 MG/50 ML RTUPB IV PRN; LACTATED RINGERS 1000 ML IV PRN; LIDOCAINE 0.5% INJ-PF (5 MG/ML) 50 ML SDV SUBCUT PRN
[2016-10-14] MEDS ORDERED: BUPIVACAINE HCL 0.5 % INJ/PF 30 ML SDV ONE (06:44)
[2016-10-14] MEDS ORDERED: FENTANYL CITRATE INJ/PF 250 MCG/5 ML AMPULE ONE (06:45)
[2016-10-14] MEDS ORDERED: MIDAZOLAM 2 MG/2 ML INJ ONE (06:46)
[2016-10-14] MEDS ORDERED: EPHEDRINE SULFATE INJ 50 MG/1 ML AMPULE ONE (06:46)
[2016-10-14] MEDS ORDERED: PROPOFOL INJ 200 MG/20 ML VIAL IV ONE ×2 (06:46→06:48)
[2016-10-14] MEDS ORDERED: MORPHINE SULFATE 10 MG/ML INJ ONE (06:47)
[2016-10-14] MEDS ORDERED: IBUPROFEN INJ 800 MG/8 ML VIAL IV ONE (06:47)
[2016-10-14] MEDS ORDERED: ACETAMINOPHEN 100 ML IV ONE (06:47)
[2016-10-14] MEDS ORDERED: ONDANSETRON HCL INJ/PF 4 MG/2 ML SDV IV PRN (08:17)
[2016-10-14] MEDS ORDERED: DIPHENHYDRAMINE HCL 50 MG/ML VIAL IV PRN (08:17)
[2016-10-14] MEDS ORDERED: MORPHINE SULFATE 10 MG/ML INJ IV PRN ×2 (08:17→10:06)
[2016-10-14] MEDS ORDERED: FENTANYL CITRATE INJ/PF 100 MCG/2 ML AMPUL IV PRN ×3 (08:17)
[2016-10-14] MEDS ORDERED: OXYCODONE-ACETAMINOPHEN 5-325 MG TABLET PO PRN (10:06)
--- NOTE | 2016-10-14 10:15 | Operative Report ---
Operative Report DATE OF SURGERY: 10/14/16 PREOPERATIVE DIAGNOSIS: 1. Right Thumb CMC OA. 2. Right Carpal Tunnel Syndrome. 3. Hyperextension Instability Right Thumb MCP Joint POSTOPERATIVE DIAGNOSIS: Same OPERATION: 1. Right Thumb CMC Arthroplasty w/ Trapeziectomy w/ Ligament Reconstruction Tendon Interposition. 2. MCP Volar Capsulodesis. 3. Endoscopic Carpal Tunnel Release SURGEON: NATHALY ALCALA ANESTHESIA: GA COMPLICATIONS: None ESTIMATED BLOOD LOSS: Minimal PROCEDURE: Indication for above procedure: 71-year-old female with long-standing history of right thumb osteoarthritis along with carpal tunnel syndrome. We attempted conservative measures including injections, immobilization and activity modification without resolution of her symptoms. At that point we discussed treatment options including operative versus nonoperative intervention. Risks and benefits were explained to the patient who verbalized understanding consented for the procedure. Procedure In Detail: Patient was seen and evaluated in the preoperative holding area. The LEFT upper extremity was initialized and marked. Patient received clindamycin IV for bacterial prophylaxis. Patient was taken back to the operative room where transferred operative table. Patient was then placed under general anesthesia. Once adequately anesthetized, a nonsterile tourniquet was placed on the upper extremity. A surgical team debriefing was performed ensuring all instrumentation was available, the surgical procedure was discussed with possible concerns reviewed. The upper extremity was prepped with chlorhexidine and alcohol and draped in a sterile fashion. A timeout was done identifying correct patient, procedure and extremity everyone in attendance agree with this and verbalized no concerns.The extremity was then exsanguinated the tourniquet was inflated to 250 mmHg. A transverse skin incision was made just proximal to the wrist flexion crease ulnar to the palmaris longus. Blunt dissection was performed down to the palmaris longus tendon which was retracted radially. Deep to the palmaris longus tendon was the volar carpal ligament this was incised identifying the median nerve deep. With the use of a Purdy elevator any soft tissue/synovium was freed from the undersurface of the transverse carpal ligament. The hook of hamate was identified ulnarly. The ConMed cannulas were then introduced beginning with #1 progressing to a #3 gently dilating the carpal canal. I then introduced the scope within the cannula and identified transverse carpal ligament ensuring the median nerve was not visualized within the cannula. I triangulated distally with a 25-gauge needle identifying the distal aspect of the transverse carpal ligament, to ensure protection of the superficial palmar arch. The arthroscopic knife was used to incise the transverse carpal ligament under direct visualization with the arthroscopic camera. Any excess transverse fibers that remained after the first past were carefully released with a repeat pass. The median nerve was then directly visualized radially without disruption. Once this was completed I placed the #3 dilator and assured I got complete release of the transverse carpal ligament without residual compression. The median nerve was directly visualized and free of any overlying compression. I then turned my attention to release of the volar antebrachial fascia proximally. Once again a Purdy was used to open the wound and I proceeded with cannula #1 to #3. The arthroscope was introduced into the cannula and under direct visualization the volar antebrachial fascia was released. Once this was complete I copiusly irrigated the wound with normal saline. At the completion of the case the skin incision was closed with 4-0 Monocryl subcutaneous and a running subcuticular 4-0 Monocryl. Procedure In Detail: A longitudinal skin incision was made in line with the first dorsal compartment. I then meticulously dissected down to the interval of the APL and EPB identifying the superficial radial nerve branches which were retracted. I then identified the radial artery which was protected throughout the entirety of the case with a Purdy elevator. A T-shaped capsulotomy was made at the CMC joint of the thumb. A freer elevator was used to richard out the CMC joint, fluoroscopy confirmed the thumb cmc joint placement. The capsule was released off of the trapezium circumferentially. The FCR insertion volarly was protected. Using a rongeur the trapezium was excised as one unit. I then removed any residual loose bodies and bone fragments. I then inspected the STT joint. There was evidence of advanced degenerative changes of the STT joint thus the proximal portion of the trapezoid was excised with an osteotome. I then turned my attention to harvesting the FCR tendon. The FCR was identified and 2 transverse incisions were made. The entire FCR tendon was harvested. The tendon was then retrieved from the CMC joint of the thumb. The base of the thumb metacarpal was rongeured to allow for cancellous tendon healing. I tenolysed the FCR up to its insertion at the second metacarpal. Using a rongeur the 1st metacarpal base osteophytes were removed. I then turned my attention to MCP joint capsulodesis prior to completion of the ligament reconstruction and tendon interposition. A chevron skin incision was made along the volar aspect of the MCP joint. The radial and ulnar neurovascular bundles were identified and retracted from the wound. The A2 cheng was identified and released the FPL tendon was retracted exposing the volar plate. The volar plate was then carefully elevated from the underlying MCP joint up to the proximal phalanx. Under C-arm fluoroscopy I confirmed appropriate placement of my 2.5 mm Arthrex anchor this was secured into position. The flap a volar plate was then secured to the volar aspect of the metacarpal maintaining thumb flexion of 30. There was good stability of the MCP joint resisting hyperextension. I then placed a 0.045 K wire obliquely across the MCP joint maintaining approximately 40 of MCP joint flexion. The wound was then copiously irrigated with normal saline. Incision was closed with interrupted 4-0 nylon suture. I then turned my attention to completion of the ligament reconstruction. Bone tunnels were created with the use of #1 PDS suture in a horizontal mattress fashion while my events assistant held distraction at the thumb CMC joint with the FCR tendon. Once this was complete excellent stability of the CMC joint was achieved without evidence of subsidence. I fixated the remaining FCR tendon to the FCR tendon that remained attached the to second metacarpal with 3- 0 Vicryl forming an anchovy. Fluoroscopy was then obtained which demonstrated good stability of my CMC arthroplasty without evidence of subsidence at rest or with stress. The wound was then copiously irrigated with normal saline. A peripheral vasculature is carefully coagulated with bipolar cautery The capsule was closed with interrupted 3-0 vicryl. Superficial radial nerve was once again inspected and protected during skin closure. Skin was closed with 4- 0 Monocryl subcuticular suture reinforced with Dermabond and Steri-Strips.. The patient was placed in a thumb spica splint. Sponge counts, instrument counts and needle counts were correct. 30 mL of 0.5 marcaine was injected for postoperative pain control. Patient was extubated and transferred to the operative stretcher. There was no intraoperative complications patient tolerated procedure well with stable to PACU. Postoperative plan: Patient will continue the splint for 2 weeks. Patient will then be transitioned to a cast for an additional 2 weeks. At 4 weeks postoperatively MCP joint K wire will be removed. She will then begin occupational therapy at 4 weeks and will be fitted for a thermoplastic splint at that time.
--- NOTE | 2016-10-14 10:17 | PDOC DISCHARGE SUMMARY ---
Discharge Summary (SDC) - Discharge Final Diagnosis: 1. Right Thumb CMC Arthritis. 2. Right Carpal Tunnel Syndrome. 3. Hyperextension Instability Right Thumb MCP Joint Date of Surgery: 10/14/16 Discharge Date: 10/14/16 Condition: Good Treatment or Instructions: Schedule Follow Up w/ Dr. Zia Manzano @ [facility] for [facility] to be seen in 10-14 days or as scheduled [place]: [place]: [place]: Ice and elevate Keep splint clean/dry/intact. If your fingers become numb please unwrap the Nazario wrap but leave the splint in place, if the sensation does not return within 30 minutes please return to the emergency department. May begin finger range of motion attempting to make full fist. Please use ibuprofen (Motrin or Advil) 600-800 mg every 8 hours as needed for pain or fever. You may also use acetaminophen (Tylenol) 1000 mg every 4-6 hours as needed for pain or fever. Please be aware that many medications contain acetaminophen, do not exceed a total of 1000 mg of acetaminophen every 6 hours. If ibuprofen and acetaminophen are not sufficient for your pain you may take the Percocet. Please be aware that the Percocet does contain Tylenol. Stool softener of choice when on pain medication. Prescriptions: Oxycodone HCl/Acetaminophen [Percocet 5-325 mg Tablet] 1 - 2 tab PO ASDIR PRN # 45 tablet PRN Reason: Referrals: HEMALATHA ZAPATA MD [Primary Care Provider] - Discharge Diet: As Tolerated Respiratory Treatments at Home: Deep Breathing/Coughing Discharge Activity: No Lifting Over 10 Pounds, No Lifting/Push/Pulling Report the Following to Your Physician Immediately: Increase in Pain, Fever over 101 Degrees, Unusual Bleeding, Redness, Swelling, Warmth, Increased Soreness
[2016-10-14] MEDS: FENTANYL CITRATE INJ/PF 100 MCG/2 ML AMPUL ONE ×2 (10:24→10:40)
[2016-10-14 12:40] VITALS: BP 141/76
[2016-10-14] MEDS ORDERED: SUCCINYLCHOLINE CHLORIDE INJ 200 MG/10 ML VIAL ONE (14:28)
[2016-10-14] MEDS ORDERED: DEXAMETHASONE SOD PHOSPHATE INJ 4 MG/1 ML VIAL ONE (14:28)
[2016-10-14] MEDS ORDERED: ONDANSETRON HCL INJ/PF 4 MG/2 ML SDV ONE (14:28)
[2016-10-14] MEDS ORDERED: GLYCOPYRROLATE INJ 0.4 MG/2 ML VIAL ONE (14:28)
[2016-10-14] MEDS ORDERED: LIDOCAINE 2% INJ-PF (20 MG/ML) 10 ML AMPUL ONE (14:28)
--- NOTE | 2016-10-14 16:55 | RADIOLOGY REPORT (SQ) ---
EXAM DESCRIPTION: NO CHG FLUORO; FINGER RIGHT COMPLETED DATE/TIME: 10/14/2016 12:39 pm REASON FOR STUDY: RT CARPOMETACARPAL ARTHROPLASTY, PINNING RT THUMB ASSISTED WITH FLUORO IN O M18.11 UNIL PRIMARY OSTEOARTH OF FIRST CARPOMETACARP JOINT, Z01.818 ENCOUNTER FOR OTHER PREPROCEDURAL EX AMINATION COMPARISON: None. FLUOROSCOPY TIME: 46 seconds 4 images saved to PACS. TECHNIQUE: Intra-operative images acquired during surgical procedure to evaluate progress. NUMBER OF IMAGES: 4 LIMITATIONS: None. FINDINGS: Orthopedic pin across the meta carpal phalangeal joint of the thumb. IMPRESSION: IMAGE(S) OBTAINED DURING PROCEDURE. COMMENT: Quality ID [id number]: Final reports for procedures using fluoroscopy that document radiation exp osure indices, or exposure time and number of fluorographic images (if radiation exposure indices are not available) Please consult full operative report of the attending physician for description of the procedure. TECHNICAL DOCUMENTATION: JOB ID: [id number] [employer]- All Rights Reserved
== END 2016-10-14 12:30 | disposition home or self-care (01) ==
LOC: OROUT 05:24
PROVIDERS: ATTEND Orthopaedic Surgery
PROC: 01N54ZZ Release Median Nerve, Percutaneous Endoscopic Approach (ICD-10-PCS; 2016-10-14)
PROC: 0RGU0ZZ (ICD-10-PCS; 2016-10-14)
PROC: 0RQS0ZZ Repair Right Carpometacarpal Joint, Open Approach (ICD-10-PCS; principal; 2016-10-14 07:45)
DX: M18.11 Unilateral primary osteoarthritis of first carpometacarpal joint, right hand (principal); G56.01 Carpal tunnel syndrome, right upper limb; I10 Essential (primary) hypertension; M25.341 Other instability, right hand; Z88.0 Allergy status to penicillin; Z79.899 Other long term (current) drug therapy; F17.210 Nicotine dependence, cigarettes, uncomplicated
CPT/HCPCS: 25447; 93005; 36415; 85025; 80048; 81001; 71020; 73140; 93010; 29848; 26516; C1713; J2250; J1100; J3490 ×2; J3010 ×2; A9270; J0330; J2405; J2704; J0131; 01810; J1741; J2270

== ENCOUNTER → 2016-12-19 | Outpatient (CLI) | payer MEDICARE, OTHER ==
[2016-12-19 11:31] LABS: HEMATOCRIT 31.8 % (36.0-47.0); HEMOGLOBIN 10.9 g/dL (12.0-15.5); HGB HCT DIFFERENCE 0.9; MEAN CORPUSCULAR HEMOGLOBIN 32.7 pg (27.0-33.4); MEAN CORPUSCULAR HGB CONC 34.2 g/dL (32.0-36.0); MEAN CORPUSCULAR VOLUME 96 fl (80-97); RED BLOOD COUNT 3.33 10^6/uL (3.72-5.28); RED CELL DISTRIBUTION WIDTH 12.6 % (11.5-14.0)
[2016-12-19 12:03] LABS: ERYTHROCYTE SEDIMENTATION RATE 35 mm/hr (0-30)
== END ==
LOC: OD 10:41
PROVIDERS: ATTEND Orthopaedic Surgery
DX: M25.50 Pain in unspecified joint (principal)
CPT/HCPCS: 36415; 85027; 85652; 86200

== ENCOUNTER → 2017-08-05 | Outpatient (CLI) | payer MEDICARE, OTHER ==
--- NOTE | 2017-08-05 12:19 | WOMENS IMAGING REPORT ---
EXAM DESCRIPTION: BONE DENSITY HIP/SPINE COMPLETED DATE/TIME: 08/05/2017 10:17 am REASON FOR STUDY: OSTEOPOROSIS Z12.31 ENCNTR SCREEN MAMMOGRAM FOR MALIGNANT NEOPLASM OF SARAH M81.0 AGE-RELATED OSTEOPOROSIS W/O CURRENT PATHOLOGICAL FRAC COMPARISON: 2011, 2014 TECHNIQUE: Dual-Energy X-ray Absorptiometry (DEXA) of the AP Spine and left forearm. LIMITATIONS: None. FINDINGS: LUMBAR SPINE: The bone mineral density (BMD) measured from L1-L4 in the AP projection correlates with a T-score of +1.1, which is normal as defined by the World Health Organization. LEFT FOREARM: The bone mineral density (BMD) measured in the left forearm correlates with a T-score of -1.1, which is osteopenic as defined by the World Health Organization. IMPRESSION: 1. LUMBAR SPINE: Normal 2. LEFT FOREARM: Osteopenic COMMENT: The World Health Organization defines low BMD as follows: T-score: Normal: Greater than -1.0 Osteopenia: Between -1.0 and -2.5 Osteoporosis: Less than -2.5 without fractures Established osteoporosis: Less than -2.5 with fractures In general, you may wish to consider: Diagnosis Treatment Follow-up DEXA Normal BMD Prevention 2-3 years Osteopenia Prevention/Therapy 1-2 years Osteoporosis Therapy Yearly TECHNICAL DOCUMENTATION: JOB ID: [id number]- All Rights Reserved Reading location - IP/workstation name: [email or web address]
--- NOTE | 2017-08-06 19:56 | WOMENS IMAGING REPORT ---
EXAM DESCRIPTION: 3D SCREENING MAMMO BILAT COMPLETED DATE/TIME: 08/05/2017 10:30 am REASON FOR STUDY: SCREENING MAMMO Z12.31 ENCNTR SCREEN MAMMOGRAM FOR MALIGNANT NEOPLASM OF SARAH M81. 0 AGE-RELATED OSTEOPOROSIS W/O CURRENT PATHOLOGICAL FRAC COMPARISON: Multiple since 2011 TECHNIQUE: Standard craniocaudal and mediolateral oblique views of each breast recorded using digita l acquisition and breast tomosynthesis. LIMITATIONS: None. FINDINGS: Findings present which are benign by mammographic criteria. No suspicious masses, calcifi cations or architectural distortion. Pertinent benign findings: Stable benign bilateral breast parenchymal and vascular calcifications Read with the assistance of CAD. .[facility] - R2 Cenova Version 1.3 .[facility] Imaging - R2 Cenova Version 1.3 .[facility] Imaging - R2 Cenova Version 2.4 .[facility] - R2 Cenova Version 2.4 .[facility] - R2 Test Specialist Version 9.2 Benign mammographic findings may include one or more of the following: Smooth masses, popcorn/rim/co arse calcifications, asymmetries, post-procedure changes, and lesions with long-standing stability. IMPRESSION: BENIGN MAMMOGRAPHIC FINDINGS. BIRADS 2 BREAST DENSITY: b. There are scattered areas of fibroglandular density. BIRAD: 2 BENIGN FINDING(S) RECOMMENDATION: RECOMMENDATION: ROUTINE SCREENING Please continue yearly bilateral screening tomosynthesis in July 2018 COMMENT: The patient has been notified of the results by letter per SA requirements. Additional no tification policies are in place for contacting patient with suspicious or incomplete findings. Quality ID #225: The [employer] recommends an annual screening mammogram for women aged 40 years or over. This facility utilizes a reminder system to ensure that all patients receive reminder letters, and/or direct phone calls for appointments. This includes reminders for routine scr eening mammograms, diagnostic mammograms, or other Breast Imaging Interventions when appropriate. Th is patient will be placed in the appropriate reminder system. The [employer] (ACR) has developed recommendations for screening MRI of the breast s in certain patient populations, to be used in conjunction with mammography. Breast MRI surveillanc e may be appropriate for women with more than 20% lifetime risk of developing breast cancer as deter mined by genetic testing, significant family history of the disease, or history of mantle radiation f or Hodgkins Disease. ACR Practice Guidelines 2008. DBT Technology DBT is a type of tomographic mammography. With conventional mammography, overlapping breast tissue ma y make lesions difficult to detect, even with good compression. DBT uses an x-ray tube that rotates a round the breast, taking images at different angles. These images are then combined to create thin sl ices of the breast that the radiologist can view as a 3D reconstruction. The Hologic unit can perform full-field digital mammograms (2D imaging); or DBT (3D imaging); or both, in a combination mode that quickly performs both the mammogram and the tomosynthesis scan while the breast is still compressed. PQRS 6045F: Fluoroscopic imaging is not utilized for breast tomosynthesis. TECHNICAL DOCUMENTATION: FINDING NUMBER: (1) ASSESSMENT: (1) JOB ID: [id number] [employer]- All Rights Reserved Reading location - IP/workstation name: [email or web address]
== END ==
LOC: WI 10:01
PROVIDERS: ATTEND Internal Medicine
DX: Z12.31 Encounter for screening mammogram for malignant neoplasm of breast (principal); M81.0 Age-related osteoporosis without current pathological fracture
CPT/HCPCS: 77063; 77067; 77080

== ENCOUNTER 2017-11-27 09:18 | Emergency (ER) | payer MEDICARE, OTHER ==
[2017-11-27] MEDS ORDERED: OXYCODONE-ACETAMINOPHEN 5-325 MG TABLET PO ONE (09:53)
--- NOTE | 2017-11-27 09:59 | ER Document Report ---
ED Extremity Problem, Lower - General Chief Complaint: Leg Pain Stated Complaint: RIGHT THIGH/ARNDT PAIN Time Seen by Provider: 11/27/17 09:40 TRAVEL OUTSIDE OF THE [place] IN LAST 30 DAYS: No - HPI Notes: Patient is a 72 year old female that presents to the emergency department for chief complaint of right leg pain. Patient presents with pain in her right leg that is described as a pressure. She states is in her anterior right thigh radiating down to her anterior right lower leg. It is worse with standing. She denies any relief with sitting. She denies any relieving factors. She did take Aleve at 630 this morning with no change in her symptoms. She states she has had similar pains in the past and saw Dr. swann recently. He ordered MRI of the right hip which was normal. She has been referred to Dr. Pierre for further evaluation and states she has an appointment with him in a few days. She denies injury. Past Medical History: Hypertension, CKD, hyperlipidemia Past Surgical History: Bilateral knee replacement, left hip fracture repair Social History: Denies drugs alcohol and tobacco Family History: Reviewed and noncontributory for presenting illness Allergies: Reviewed, see documented allergy list. REVIEW OF SYSTEMS: CONSTITUTIONAL : No fever No chills No diaphoresis No recent illness EENT: No vision changes No congestion No sore throat CARDIOVASCULAR: No chest pain No palpitations RESPIRATORY: No shortness of breath No cough No difficulty breathing GASTROINTESTINAL: No abdominal pain No nausea No vomiting No diarrhea GENITOURINARY: No dysuria No hematuria No difficulty urinating MUSCULOSKELETAL: No back pain leg pain No arm pain SKIN: No rashes No lesions LYMPHATIC: No swollen, enlarged glands. NEUROLOGICAL: No lightheadedness No headache No weakness No paresthesias PSYCHIATRIC: No anxiety No depression PHYSICAL EXAMINATION: Vital signs reviewed, nursing noted reviewed. GENERAL: Well-appearing, well-nourished and in no acute distress. HEAD: Atraumatic, normocephalic. EYES: Eyes appear normal, extraocular movements intact, sclera anicteric, conjunctiva are normal. ENT: nares patent, oropharynx clear without exudates. Moist mucous membranes. NECK: Normal range of motion, supple without lymphadenopathy LUNGS: Breath sounds clear to auscultation bilaterally and equal. No wheezes rales or rhonchi. HEART: Regular rate and rhythm without murmurs ABDOMEN: Soft, nontender, normoactive bowel sounds. No rebound, guarding, or rigidity. No masses appreciated. EXTREMITIES: Nontender, good range of motion, no pitting or edema. Normal gait. No long bone deformity. NEUROLOGICAL: No focal neurological deficits. Moves all extremities spontaneously Motor and sensory grossly intact on exam. PSYCH: Normal mood, normal affect. SKIN: Warm, Dry, normal turgor, no rashes or lesions noted on exposed skin - Related Data Allergies/Adverse Reactions: ampicillin [Ampicillin] Allergy (Severe, Verified 09/24/16 13:37) Rash Past Medical History - Social History Smoking Status: Never Smoker Family History: Reviewed & Not Pertinent - Past Medical History Cardiac Medical History: Reports: Hx Hypercholesterolemia - well controlled with current meds, Hx Hypertension - well controlled with current meds Denies: Hx Atrial Fibrillation, Hx Congestive Heart Failure, Hx Coronary Artery Disease, Hx Heart Attack, Hx Peripheral Vascular Disease, Hx Pulmonary Embolism, Hx Heart Murmur Pulmonary Medical History: Reports: Hx Pneumonia - A BABY Denies: Hx Asthma, Hx Bronchitis, Hx COPD, Hx Respiratory Failure, Hx Sleep Apnea, Hx Tuberculosis Neurological Medical History: Denies: Hx Cerebrovascular Accident, Hx Seizures Renal/ Medical History: Reports: Hx Ovarian Cysts. Denies: Hx End Stage Renal Disease, Hx Kidney Stones, Hx Peritoneal Dialysis, Hx Pelvic Inflammatory Disease Malignancy Medical History: Denies: Hx Breast Cancer, Hx Cervical Cancer, Hx Leukemia, Hx Lung Cancer, Hx Ovarian Cancer Musculoskeletal Medical History: Reports Hx Arthritis, Denies Hx Fibromyalgia, Denies Hx Muscular Dystrophy Psychiatric Medical History: Reports: Hx Depression - yeyears ago when menapause started Traumatic Medical History: Reports: Hx Fractures - LEFT humerus as child, RIGHT long finger fx r/t dog bite Infectious Medical History: Denies: Hx HIV Past Surgical History: Reports: Hx Orthopedic Surgery - Bilateral TKA, Hx Vascular Surgery - l carotid endarterectomy. Denies: Hx Appendectomy, Hx Bowel Surgery, Hx Section, Hx Cholecystectomy, Hx Coronary Artery Bypass Graft, Hx Gastric Bypass Surgery, Hx Herniorrhaphy, Hx Hysterectomy, Hx Mastectomy, Hx Pacemaker, Hx Tonsillectomy, Hx Tubal Ligation - Immunizations Hx Diphtheria, Pertussis, Tetanus Vaccination: Yes - t-dap given during secondary Hx Pneumococcal Vaccination: 12/10/11 Review of Systems - Review of Systems Notes: Dictated Physical Exam - Vital signs Vitals: Temp Pulse Resp BP Pulse Ox 97.8 F 72 14 197/76 H 98 11/27/17 09:23 11/27/17 09:23 11/27/17 09:23 11/27/17 09:23 11/27/17 09:23 - Notes Notes: Dictated Course - Re-evaluation Re-evalutation: 11/27/17 09:57 Vitals reviewed. Nursing notes reviewed. Patient given Percocet for pain. Her pain is not reproducible with palpation. She has no direct trauma or long bone tenderness and x-ray not currently indicated. There is no rash or erythema over the affected area. Ultrasound of the right leg obtained to evaluate for DVT. 11/27/17 13:13 Venous duplex negative for acute DVT. Patient will follow with orthopedics as already scheduled. She is able to ambulate. Discharged home in stable condition. Venous Doppler Study 11/27/17 09:51 IMPRESSION: NO EVIDENCE DVT OR SVT IN THE RIGHT LEG. - Vital Signs Vital signs: Temp Pulse Resp BP Pulse Ox 97.8 F 72 14 197/76 H 98 11/27/17 09:23 11/27/17 09:23 11/27/17 09:23 11/27/17 09:23 11/27/17 09:23 Discharge - Discharge Clinical Impression: Right leg pain Condition: Stable Disposition: HOME, SELF-CARE Instructions: Leg Pain Nonspecific ([facility]) Additional Instructions: Please return to the emergency department if you have any worsening, or concern of your symptoms. Please return to the emergency department if you develop chest pain, difficulty breathing, severe abdominal pain, or ongoing vomiting. Please follow-up with your primary care physician in 2-3 days and any other recommended physicians. If prescribed, take all medications as directed. If you have any questions or concerns do not hesitate to return the emergency department for evaluation. If you develop a shingles rash over your right leg return to the emergency room or see your primary care provider Referrals: PASCUAL PIERRE MD [ACTIVE STAFF] - Follow up in 3-5 days
--- NOTE | 2017-11-27 12:48 | RADIOLOGY REPORT (SQ) ---
EXAM DESCRIPTION: VENOUS UNILATERAL LOWER COMPLETED DATE/TIME: 11/27/2017 12:31 pm REASON FOR STUDY: right leg pain COMPARISON: None. TECHNIQUE: Dynamic and static lopez scale and color images acquired of the right leg venous system. S elected spectral images acquired with additional compression and augmentation maneuvers. The contrala teral common femoral vein and saphenofemoral junction were also imaged. Images stored on PACS. LIMITATIONS: None. FINDINGS: COMMON FEMORAL: Normal phasicity, compression and augmentation. No visualized echogenic ma terial on lopez scale. No defects on color images. FEMORAL: Normal compression and augmentation. No visualized echogenic material on lopez scale. No defe cts on color images. POPLITEAL: Normal compression, augmentation. No visualized echogenic material on lopez scale. No defec ts on color images. CALF VESSELS: Normal compression, augmentation. No visualized echogenic material on lopez scale. No de fects on color images. GSV and SSV: Normal compression, augmentation. No visualized echogenic material on lopez scale. No def ects on color images. ANY DEEP VENOUS INSUFFICIENCY: Not evaluated. ANY EVIDENCE OF POPLITEAL CYST: No. OTHER: No other significant finding. CONTRALATERAL COMMON FEMORAL VEIN AND SAPHENOFEMORAL JUNCTION: Normal phasicity, compression and augmentation. No visualized echogenic material on lopez scale. No de fects on color images. IMPRESSION: NO EVIDENCE DVT OR SVT IN THE RIGHT LEG. TECHNICAL DOCUMENTATION: JOB ID: [id number] [employer]- All Rights Reserved Reading location - IP/workstation name: [email or web address]
[2017-11-27 14:01] VITALS: BP 180/80
== END 2017-11-27 14:05 | disposition home or self-care (01) ==
LOC: ER 09:18
DX: M79.651 Pain in right thigh (principal); M79.661 Pain in right lower leg; I10 Essential (primary) hypertension; Z96.653 Presence of artificial knee joint, bilateral; Z88.0 Allergy status to penicillin
CPT/HCPCS: 99284; 93971; A9270

== ENCOUNTER → 2018-09-02 | Outpatient (CLI) | payer MEDICARE, OTHER ==
--- NOTE | 2018-09-02 11:48 | WOMENS IMAGING REPORT ---
EXAM DESCRIPTION: 3D SCREENING MAMMO BILAT COMPLETED DATE/TIME: 09/02/2018 10:29 am REASON FOR STUDY: Z12.31 ROUTINE 3D BILATERAL SCREENING Z12.31 ENCNTR SCREEN MAMMOGRAM FOR MALIGNAN T NEOPLASM OF SARAH COMPARISON: [id number] EXAM PARAMETERS: Views: Standard craniocaudal and mediolateral oblique views of each breast recorded using digital acquisition and breast tomosynthesis. Read with the assistance of CAD. .[facility] - [employer] Silverware Etcher Version 9.2 LIMITATIONS: None. FINDINGS: No suspicious masses, suspicious calcifications or architectural distortion. No areas of c oncern. IMPRESSION: NEGATIVE MAMMOGRAM. BIRADS 1. BREAST DENSITY: b. There are scattered areas of fibroglandular density. BIRAD: ASSESSMENT: 1 NEGATIVE RECOMMENDATION: ROUTINE SCREENING COMMENT: The patient has been notified of the results by letter per MQSA requirements. Additional no tification policies are in place for contacting patient with suspicious or incomplete findings. Quality ID #[id number]: The [employer] recommends an annual screening mammogram for women aged 40 years or over. This facility utilizes a reminder system to ensure that all patients receive reminder letters, and/or direct phone calls for appointments. This includes reminders for routine scr eening mammograms, diagnostic mammograms, or other Breast Imaging Interventions when appropriate. Th is patient will be placed in the appropriate reminder system. TECHNICAL DOCUMENTATION: FINDING NUMBER: (1) ASSESSMENT: (1) JOB ID: [id number] [employer]- All Rights Reserved Reading location - IP/workstation name: [email or web address]
== END ==
LOC: WI 10:06
PROVIDERS: ATTEND Internal Medicine
DX: Z12.31 Encounter for screening mammogram for malignant neoplasm of breast (principal); I65.29 Occlusion and stenosis of unspecified carotid artery
CPT/HCPCS: 77063; 77067

== ENCOUNTER 2018-10-03 13:52 | Emergency (ER) | payer MEDICARE, OTHER ==
--- NOTE | 2018-10-03 14:42 | ER Document Report ---
ED Medical Screen (RME) - General Chief Complaint: Headache >24 hrs old Stated Complaint: BLOOD PRESSURE ISSUE Time Seen by Provider: 10/03/18 14:31 Primary Care Provider: HEMALATHA ZAPATA MD [Primary Care Provider] - Follow up as needed Notes: Patient is a 73-year-old female with a past medical history of hypertension and chronic kidney disease who presents to the emergency department with a headache on the left side of her head. She describes the pain as a dull achy pain. Patient reports that she has had some high blood pressure readings starting last night around 10:00 with the highest being 221/117. She states that she took some Tylenol, 1000 mg this morning and did not help with her pain. Patient also has arthritis which she takes Tylenol for also. Denies any paresthesias, loss of consciousness, syncope, or any other symptoms. Exam: Strength 5 out of 5 in all extremities. I have greeted and performed a rapid initial assessment of this patient. A comprehensive ED assessment and evaluation of the patient, analysis of test results and completion of medical decision making process will be conducted by an additional ED providers. TRAVEL OUTSIDE OF THE [place] IN LAST 30 DAYS: No - Related Data Allergies/Adverse Reactions: ampicillin [Ampicillin] Allergy (Severe, Verified 09/24/16 13:37) Rash Past Medical History - Past Medical History Cardiac Medical History: Reports: Hx Hypercholesterolemia - well controlled with current meds, Hx Hypertension - well controlled with current meds Denies: Hx Atrial Fibrillation, Hx Congestive Heart Failure, Hx Coronary Artery Disease, Hx Heart Attack, Hx Peripheral Vascular Disease, Hx Pulmonary Embolism, Hx Heart Murmur Pulmonary Medical History: Reports: Hx Pneumonia - A BABY Denies: Hx Asthma, Hx Bronchitis, Hx COPD, Hx Respiratory Failure, Hx Sleep Apnea, Hx Tuberculosis Neurological Medical History: Denies: Hx Cerebrovascular Accident, Hx Seizures Renal/ Medical History: Reports: Hx Ovarian Cysts. Denies: Hx End Stage Renal Disease, Hx Kidney Stones, Hx Peritoneal Dialysis, Hx Pelvic Inflammatory Disease Malignancy Medical History: Denies: Hx Breast Cancer, Hx Cervical Cancer, Hx Leukemia, Hx Lung Cancer, Hx Ovarian Cancer Musculoskeltal Medical History: Reports Hx Arthritis, Denies Hx Fibromyalgia, Denies Hx Muscular Dystrophy Psychiatric Medical History: Reports: Hx Depression - yeyears ago when menapause started Traumatic Medical History: Reports: Hx Fractures - LEFT humerus as child, RIGHT long finger fx r/t dog bite Infectious Medical History: Denies: Hx HIV Past Surgical History: Reports: Hx Orthopedic Surgery - Bilateral TKA, Hx Vascular Surgery - l carotid endarterectomy. Denies: Hx Appendectomy, Hx Bowel Surgery, Hx Section, Hx Cholecystectomy, Hx Coronary Artery Bypass Graft, Hx Gastric Bypass Surgery, Hx Herniorrhaphy, Hx Hysterectomy, Hx Mas tectomy, Hx Pacemaker, Hx Tonsillectomy, Hx Tubal Ligation - Immunizations Hx Diphtheria, Pertussis, Tetanus Vaccination: Yes - t-dap given during secondary Physical Exam - Vital signs Vitals: Temp Pulse Resp BP Pulse Ox 99.2 F 87 18 192/93 H 96 10/03/18 13:56 10/03/18 13:56 10/03/18 13:56 10/03/18 13:56 10/03/18 13:56 Course - Vital Signs Vital signs: Temp Pulse Resp BP Pulse Ox 99.2 F 87 18 192/93 H 96 10/03/18 13:56 10/03/18 13:56 10/03/18 13:56 10/03/18 13:56 10/03/18 13:56 Doctor's Discharge - Discharge Referrals: HEMALATHA ZAPATA MD [Primary Care Provider] - Follow up as needed
--- NOTE | 2018-10-03 15:19 | RADIOLOGY REPORT (SQ) ---
EXAM DESCRIPTION: CT HEAD WITHOUT COMPLETED DATE/TIME: 10/03/2018 3:02 pm REASON FOR STUDY: Headache COMPARISON: None. TECHNIQUE: Axial images acquired through the brain without intravenous contrast. Images reviewed wit h bone, brain and subdural windows. Images stored on PACS. All CT scanners at this facility use dose modulation, iterative reconstruction, and/or weight based d osing when appropriate to reduce radiation dose to as low as reasonably achievable (ALARA). [facility]: Dose Right [facility]: CareDose [facility]: Dose Right [facility]: Teradose 4D [facility]: Smart K[employer] Media RADIATION DOSE: CT Rad equipment meets quality standard of care and radiation dose reduction techniq ues were employed. CTDIvol: 53.2 mGy. DLP: 1017 mGy-cm.. LIMITATIONS: None. FINDINGS: VENTRICLES: Normal size and contour. CEREBRUM: No masses. No hemorrhage. No midline shift. Age appropriate white matter. No evidence for a cute infarction. CEREBELLUM: No masses. No hemorrhage. No alteration of density. No evidence for acute infarction. EXTRA-AXIAL SPACES: No fluid collections. ORBITS AND GLOBE: No intra- or extraconal masses. Normal contour of globe without masses. CALVARIUM: No fracture. PARANASAL SINUSES: No fluid or mucosal thickening. SOFT TISSUES: No mass or hematoma. OTHER: No other significant finding. IMPRESSION: NO ACUTE INTRACRANIAL FINDINGS. EVIDENCE OF ACUTE STROKE: NO. TECHNICAL DOCUMENTATION: JOB ID: [id number] Quality ID # [id number]: Final reports with documentation of one or more dose reduction techniques (e.g., Au tomated exposure control, adjustment of the mA and/or kV according to patient size, use of iterative reconstruction technique) 2010 [employer]- All Rights Reserved Reading location - IP/workstation name: [email or web address]
[2018-10-03 15:44] LABS: APPEARANCE,URINE CLEAR; BILIRUBIN,URINE NEGATIVE (NEGATIVE); COLOR,URINE YELLOW; GLUCOSE, URINE NEGATIVE (NEGATIVE); KETONES,URINE NEGATIVE (NEGATIVE); LEUKOCYTE ESTERASE,URINE NEGATIVE (NEGATIVE); NITRITE,URINE NEGATIVE (NEGATIVE); PROTEIN,URINE NEGATIVE (NEGATIVE)
[2018-10-03 15:53] LABS: HEMATOCRIT 33.4 % (36.0-47.0); HEMOGLOBIN 11.2 g/dL (12.0-15.5); MEAN CORPUSCULAR HEMOGLOBIN 31.6 pg (27.0-33.4); MEAN CORPUSCULAR HGB CONC 33.7 g/dL (32.0-36.0); MEAN CORPUSCULAR VOLUME 94 fl (80-97); RED BLOOD COUNT 3.56 10^6/uL (3.72-5.28); RED CELL DISTRIBUTION WIDTH 12.2 % (11.5-14.0)
[2018-10-03 15:54] LABS: ALBUMIN 4.4 g/dL (3.5-5.0); ALKALINE PHOSPHATASE 70 U/L (38-126); ANION GAP 8 (5-19); ASPARTATE AMINO TRANSFERASE 117 U/L (14-36); BILIRUBIN,DIRECT 0.3 mg/dL (0.0-0.4); BILIRUBIN,TOTAL 0.7 mg/dL (0.2-1.3); BLOOD UREA NITROGEN 16 mg/dL (7-20); CALCIUM 9.4 mg/dL (8.4-10.2); CARBON DIOXIDE 26 mmol/L (22-30); CHLORIDE 104 mmol/L (98-107); GLUCOSE 95 mg/dL (75-110); POTASSIUM 4.1 mmol/L (3.6-5.0); TOTAL PROTEIN 7.2 g/dL (6.3-8.2)
[2018-10-03 16:15] LABS: PLATELET COUNT 92 10^3/uL (150-450)
[2018-10-03 16:17] LABS: ABSOLUTE LYMPHOCYTES# (MANUAL) 0.2 10^3/uL (0.5-4.7); ABSOLUTE MONOCYTES # (MANUAL) 0.1 10^3/uL (0.1-1.4); BASOPHILS % (MANUAL) 0 % (0-2); EOSINOPHILS % (MANUAL) 0 % (0-6); LYMPHOCYTES % (MANUAL) 14 % (13-45); MONOCYTES % (MANUAL) 6 % (3-13); PLATELET COMMENT DECREASED; RBC MORPHOLOGY COMMENT NORMO-CYTIC/CHROMIC; SEGMENTED NEUTROPHILS % (MAN) 80 % (42-78); TOTAL CELLS COUNTED 50
[2018-10-03] MEDS ORDERED: METOCLOPRAMIDE HCL INJ/PF 10 MG/2 ML SDV IV ONE (17:48)
[2018-10-03] MEDS ORDERED: DIPHENHYDRAMINE HCL 50 MG/ML VIAL IV ONE (17:48)
[2018-10-03] MEDS ORDERED: KETOROLAC TROMETHAMINE INJ/PF 30 MG/1 ML SDV IV ONE (17:51)
--- NOTE | 2018-10-03 17:52 | EKG REPORT ---
SEVERITY:- NORMAL ECG - SINUS RHYTHM : Confirmed by: Abelino Hardwick MD 03-Oct-2018 17:51:51
[2018-10-03] MEDS ORDERED: METOPROLOL TARTRATE PF/INJ 5 MG/5 ML SDV IV ONE (18:48)
--- NOTE | 2018-10-03 19:57 | ER Document Report ---
ED Headache - General Chief Complaint: Headache >24 hrs old Stated Complaint: BLOOD PRESSURE ISSUE Time Seen by Provider: 10/03/18 14:31 Primary Care Provider: HEMALATHA ZAPATA MD [Primary Care Provider] - Follow up as needed Mode of Arrival: Ambulatory Information source: Patient Notes: Patient is a 73-year-old female presented to the emergency department with chief complaint of headache. Patient reports headache started last night. She reports it was a gradual onset with associated nausea. She denies any other symptoms to include vomiting or fever. She also reports her blood pressure was elevated yesterday she states it was 210/100. She reports her blood pressure is usually in the 130s systolic. She takes Micardis 80 mg in the morning, metoprolol 25 mg in the morning and Celexa in the morning. She reports today she took acetaminophen 1 g with no relief of her headache so she came to the emergency department. TRAVEL OUTSIDE OF THE [place] IN LAST 30 DAYS: No - Related Data Allergies/Adverse Reactions: ampicillin [Ampicillin] Allergy (Severe, Verified 09/24/16 13:37) Rash Past Medical History - Social History Smoking Status: Former Smoker Chew tobacco use (# tins/day): No Drug Abuse: None Family History: Reviewed & Not Pertinent Patient has suicidal ideation: No Patient has homicidal ideation: No - Past Medical History Cardiac Medical History: Reports: Hx Hypercholesterolemia - well controlled with current meds, Hx Hypertension - well controlled with current meds Denies: Hx Atrial Fibrillation, Hx Congestive Heart Failure, Hx Coronary Artery Disease, Hx Heart Attack, Hx Peripheral Vascular Disease, Hx Pulmonary Embolism, Hx Heart Murmur Pulmonary Medical History: Reports: Hx Pneumonia - A BABY Denies: Hx Asthma, Hx Bronchitis, Hx COPD, Hx Respiratory Failure, Hx Sleep Apnea, Hx Tuberculosis Neurological Medical History: Denies: Hx Cerebrovascular Accident, Hx Seizures Renal/ Medical History: Reports: Hx Ovarian Cysts. Denies: Hx End Stage Renal Disease, Hx Kidney Stones, Hx Peritoneal Dialysis, Hx Pelvic Inflammatory Disease Malignancy Medical History: Denies: Hx Breast Cancer, Hx Cervical Cancer, Hx Leukemia, Hx Lung Cancer, Hx Ovarian Cancer Musculoskeletal Medical History: Reports Hx Arthritis, Denies Hx Fibromyalgia, Denies Hx Muscular Dystrophy Psychiatric Medical History: Reports: Hx Depression - yeyears ago when menapause started Traumatic Medical History: Reports: Hx Fractures - LEFT humerus as child, RIGHT long finger fx r/t dog bite Infectious Medical History: Denies: Hx HIV Past Surgical History: Reports: Hx Orthopedic Surgery - Bilateral TKA, Hx Vascular Surgery - l carotid endarterectomy. Denies: Hx Appendectomy, Hx Bowel Surgery, Hx Section, Hx Cholecystectomy, Hx Coronary Artery Bypass Graft, Hx Gastric Bypass Surgery, Hx Herniorrhaphy, Hx Hysterectomy, Hx Mas tectomy, Hx Pacemaker, Hx Tonsillectomy, Hx Tubal Ligation - Immunizations Hx Diphtheria, Pertussis, Tetanus Vaccination: Yes - t-dap given during secondary Hx Pneumococcal Vaccination: 12/10/11 Review of Systems - Review of Systems Constitutional: No symptoms reported EENT: No symptoms reported Cardiovascular: No symptoms reported Respiratory: No symptoms reported Gastrointestinal: Nausea Genitourinary: No symptoms reported Female Genitourinary: No symptoms reported Musculoskeletal: No symptoms reported Skin: No symptoms reported Hematologic/Lymphatic: No symptoms reported Neurological/Psychological: No symptoms reported Physical Exam - Vital signs Vitals: Temp Pulse Resp BP Pulse Ox 99.2 F 87 18 192/93 H 96 10/03/18 13:56 10/03/18 13:56 10/03/18 13:56 10/03/18 13:56 10/03/18 13:56 - Notes Notes: PHYSICAL EXAMINATION: GENERAL: Well-appearing, well-nourished and in no acute distress. HEAD: Atraumatic, normocephalic. EYES: Pupils equal round and reactive to light, extraocular movements intact, conjunctiva are normal. ENT: Nares patent, oropharynx clear without exudates. Moist mucous membranes. NECK: Normal range of motion, supple without lymphadenopathy LUNGS: Breath sounds clear to auscultation bilaterally and equal. No wheezes rales or rhonchi. HEART: Regular rate and rhythm without murmurs ABDOMEN: Soft, nontender, nondistended abdomen. No guarding, no rebound. No masses appreciated. Female : deferred Musculoskeletal: Normal range of motion, no pitting or edema. No cyanosis. NEUROLOGICAL: Cranial nerves grossly intact. Normal speech, normal gait. Normal sensory, motor exams PSYCH: Normal mood, normal affect. SKIN: Warm, Dry, normal turgor, no rashes or lesions noted. Course - Re-evaluation Re-evalutation: 10/03/18 19:58 I spoke with my attending physician, Dr. Wright who recommended giving her Lopressor 5 mg IV as her blood pressure was elevated at the time of my evaluation. I did give her headache medications which patient reports have mostly resolved her headache. At the time of reevaluation patient's blood pressure has been in the 150s systolic. This has been for several readings. Patient reports she feels completely resolved of her headache. Patient does have a primary care provider that she can follow-up with. She will be discharged home in stable condition. - Vital Signs Vital signs: Temp Pulse Resp BP Pulse Ox 99.5 F 87 21 H 146/70 H 96 10/03/18 21:30 10/03/18 13:56 10/03/18 21:30 10/03/18 21:30 10/03/18 21:30 - Laboratory Result Diagrams: 10/03/18 15:10 10/03/18 15:10 Laboratory results interpreted by me: 10/03/18 10/03/18 10/03/18 15:10 15:10 15:10 WBC 1.7 L RBC 3.56 L Hgb 11.2 L Hct 33.4 L Plt Count 92 L Seg Neuts % (Manual) 80 H Abs Neuts (Manual) 1.4 L Abs Lymphs (Manual) 0.2 L AST 117 H Urine Blood MODERATE H Urine Urobilinogen 4.0 H Discharge - Discharge Clinical Impression: Hypertension Qualifiers: Hypertension type: unspecified Qualified Code(s): I10 - Essential (primary) hypertension Headache Qualifiers: Headache type: unspecified Headache chronicity pattern: unspecified pattern Intractability: not intractable Qualified Code(s): R51 - Headache Condition: Stable Disposition: HOME, SELF-CARE Additional Instructions: You were seen in the emergency department today for an episode of hypertension accompanied by headache. A head CT was performed which was negative. Your labs were unremarkable other than a low white blood count. Please call your primary care provider to schedule a follow-up. Let them know you were given a dose of IV medication to help with your blood pressure which worked very nicely and your blood pressure was within normal limits at the time of discharge and your headache was resolved. Please return to the emergency department for any new symptoms that are concerning to you we will be happy to reevaluate you at any time. Referrals: HEMALATHA ZAPATA MD [Primary Care Provider] - Follow up as needed
[2018-10-03 22:09] VITALS: BP 146/70
[2018-10-04 08:53] LABS: WHITE BLOOD COUNT 1.7 10^3/uL (4.0-10.5)
[2018-10-04 11:25] LABS: PATH REVIEW PATHOLOGIST REVIEWED
== END 2018-10-03 22:00 | disposition home or self-care (01) ==
LOC: ER 13:52
DX: I10 Essential (primary) hypertension (principal); R51 Headache; R11.0 Nausea; F32.9 Major depressive disorder, single episode, unspecified; Z79.899 Other long term (current) drug therapy; Z88.0 Allergy status to penicillin; Z87.891 Personal history of nicotine dependence
CPT/HCPCS: 93005; 36415; 85025; 80053; 81001; 70450; 93010; J1200; J1885; J2765; J3490; 96374; 96375; 99284

== ENCOUNTER → 2018-10-09 | Outpatient (CLI) | payer MEDICARE, OTHER ==
--- NOTE | 2018-10-09 18:11 | RADIOLOGY REPORT (SQ) ---
EXAM DESCRIPTION: MRI HEAD WITHOUT COMPLETED DATE/TIME: 10/09/2018 9:06 am REASON FOR STUDY: (R26.89)OTHER ABNORMALITIES OF GAIT AND MOBILITY R26.89 OTHER ABNORMALITIES OF GA IT AND MOBILITY COMPARISON: None. TECHNIQUE: Multiplanar imaging includes non-contrasted T1, T2, FLAIR, and diffusion with ADC map seq uences. Images stored on PACS. LIMITATIONS: None. FINDINGS: ANATOMY: No anomalies. Normal vascular flow voids. Pituitary fossa normal. CSF SPACES: Normal in size and contour. No hemorrhage. CEREBRUM: Sulci and gyri normal in size and contour. Normal white matter signal on FLAIR imaging. No evidence of hemorrhage, mass, or extraaxial fluid collection. POSTERIOR FOSSA: No signal alteration. No hemorrhage. No edema, masses or mass effect. Internal marie tory canals, cerebello-pontine angles, mastoids normal. DIFFUSION IMAGING: Negative for acute or sub-acute infarction. ORBITS: No masses. Globes normal. PARANASAL SINUSES: No fluid levels. Mucosa normal. OTHER: No other significant finding. IMPRESSION: NORMAL MRI OF THE BRAIN WITHOUT INTRAVENOUS GADOLINIUM CONTRAST. EVIDENCE OF ACUTE STROKE: NO. TECHNICAL DOCUMENTATION: JOB ID: [id number] [employer]- All Rights Reserved Reading location - IP/workstation name: [email or web address]
== END ==
LOC: RAD 08:22
PROVIDERS: ATTEND Physician Assistant
DX: R26.89 Other abnormalities of gait and mobility (principal)
CPT/HCPCS: 70551

== ENCOUNTER → 2019-09-05 | Outpatient (CLI) | payer MEDICARE, OTHER ==
--- NOTE | 2019-09-05 11:23 | WOMENS IMAGING REPORT ---
EXAM DESCRIPTION: BILAT SCREENING MAMMO W/CAD IMAGES COMPLETED DATE/TIME: 09/05/2019 9:47 am REASON FOR STUDY: Z12.31 ENCOUNTER FOR SCREENING MAMMOGRAM FOR MALIGNANT NEOPLASM OF BREAST Z12.31 ENCNTR SCREEN MAMMOGRAM FOR MALIGNANT NEOPLASM OF SARAH M81.0 AGE-RELATED OSTEOPOROSIS W/O CURRENT PAT HOLOGICAL FRAC COMPARISON: Multiple since 2011 EXAM PARAMETERS: Standard craniocaudal and mediolateral oblique views of each breast recorded using digital acquisition. Read with the assistance of CAD. .[facility] - [employer] Solar Lab Technician Version 9.2 LIMITATIONS: None. FINDINGS: Findings present which are benign by mammographic criteria. No suspicious masses, calcifi cations or architectural distortion. Pertinent benign findings: Benign calcifications bilaterally Benign mammographic findings may include one or more of the following: Smooth masses, popcorn/rim/co arse calcifications, asymmetries, post-procedure changes, and lesions with long-standing stability. IMPRESSION: BENIGN MAMMOGRAPHIC FINDINGS. BIRADS 2 BREAST DENSITY: b. There are scattered areas of fibroglandular density. BIRAD: ASSESSMENT: 2 BENIGN FINDING(S) RECOMMENDATION: ROUTINE SCREENING Please continue yearly bilateral screening mammography/tomosynthesis in August 2020 COMMENT: The patient has been notified of the results by letter per [place] requirements. Additional no tification policies are in place for contacting patient with suspicious or incomplete findings. Quality ID #[id number]: The [employer] recommends an annual screening mammogram for women aged 40 years or over. This facility utilizes a reminder system to ensure that all patients receive reminder letters, and/or direct phone calls for appointments. This includes reminders for routine scr eening mammograms, diagnostic mammograms, or other Breast Imaging Interventions when appropriate. Th is patient will be placed in the appropriate reminder system. TECHNICAL DOCUMENTATION: FINDING NUMBER: (1) ASSESSMENT: (1) JOB ID: [id number] 2010 [employer]- All Rights Reserved Reading location - IP/workstation name: [email or web address]
--- NOTE | 2019-09-05 11:45 | WOMENS IMAGING REPORT ---
EXAM DESCRIPTION: BONE DENSITY HIP/SPINE IMAGES COMPLETED DATE/TIME: 09/05/2019 9:47 am REASON FOR STUDY: M81.0 AGE-RELATED OSTEOPOROSIS WITHOUT CURRENT PATHOLOGICAL FRACTURE Z12.31 ENCNT R SCREEN MAMMOGRAM FOR MALIGNANT NEOPLASM OF SARAH M81.0 AGE-RELATED OSTEOPOROSIS W/O CURRENT PATHOLOG ICAL FRAC COMPARISON: 08/05/2017, 09/08/2014, 11/19/2011 TECHNIQUE: Dual-Energy X-ray Absorptiometry (DEXA) of the AP Spine and Hip. LIMITATIONS: None. FINDINGS: LUMBAR SPINE: The bone mineral density (BMD) measured from L1-L4 in the AP projection correlates with a T-score of +1.8, which is normal as defined by the World Health Organization. BMD Change vs Baseline: This represents an 8% increase bone density 2011. Please note there is mult ilevel vertebral body endplate sclerosis. LEFT FOREARM: The bone mineral density (BMD) measured in the left forearm correlates with a T-score of -1.1, which is osteopenic as defined by the World Health Organization. BMD Change vs Baseline: N/A 10 year Fracture Risk Assessment: Major Osteoporotic Fracture: Not available. Hip Fracture: Not available. IMPRESSION: 1. LUMBAR SPINE WHO CLASSIFICATION: Normal 2. HIP WHO CLASSIFICATION: Osteopenic OVERALL ASSESSMENT: WHO CLASSIFICATION: Osteopenia COMMENT: The World Health Organization defines low BMD as follows: T-score: Normal: At or above -1.0 Osteopenia: Between -1.0 and -2.5 Osteoporosis: At or below -2.5 without fractures Established osteoporosis: At or below -2.5 with fractures In general, you may wish to consider: Diagnosis Treatment Follow-up DEXA Normal BMD Prevention 2-3 years Osteopenia Prevention/Therapy 1-2 years Osteoporosis Therapy Yearly TECHNICAL DOCUMENTATION: JOB ID: [id number] 2010 [employer]- All Rights Reserved Reading location - IP/workstation name: [email or web address]
== END ==
LOC: WI 09:13
PROVIDERS: ATTEND Physician Assistant
DX: Z12.31 Encounter for screening mammogram for malignant neoplasm of breast (principal); M81.0 Age-related osteoporosis without current pathological fracture
CPT/HCPCS: 77067; 77080